=== PATIENT | male | born 1950 | race Caucasian/White ===

== ENCOUNTER 2018-04-11 17:09 | Emergency (ER) | payer MEDICARE ==
--- NOTE | 2018-04-11 17:36 | ED Physician Chart ---
ED Chief Complaint/HPI - Patient Information Date Seen:: 04/11/18 Time Seen:: 17:20 Chief Complaint:: abnormal labs History of Present Illness:: Patient had a urinalysis 2 days ago which had 11-30 rbc's and it. ED Review of Systems - Review of Systems General/Constitutional: No fever, No chills, No weight loss, No weakness, No diaphoresis, No edema, No loss of appetite Skin: No skin lesions, No rash, No bruising Head: No headache, No light-headedness Eyes: No loss of vision, No pain, No diplopia ENT: No earache, No nasal drainage, No sore throat, No tinnitus Neck: No neck pain, No swelling, No thyromegaly, No stiffness, No mass noted Cardio Vascular: No chest pain, No palpitations, No PND, No orthopnea, No edema Pulmonary: No SOB, No cough, No sputum, No wheezing GI: No nausea, No vomiting, No diarrhea, No pain, No melena, No hematochezia, No constipation, No hematemesis G/U: No dysuria, No frequency, No hematuria Musculoskeletal: No bone or joint pain, No back pain, No muscle pain Endocrine: No polyuria, No polydipsia Psychiatric: No prior psych history, No depression, No anxiety, No suicidal ideation Hematopoietic: No bruising, No lymphadenopathy Allergic/Immuno: No urticaria, No angioedema Neurological: No syncope, No focal symptoms, No weakness, No paresthesia, No headache, No seizure, No dizziness, No confusion, No vertigo ED Past Medical History - Past Medical History Past Medical History: Dyslipidemia, PUD/GERD, Seizures, Other (seizures; hyperlipidemia; benign prostatic hypertrophy; major depression) Family History: None Social History: Non Smoker Surgical History: other (coarctation of the aorta at age 11; recent craniotomy for mass) Psychiatricy History: Depression, Other (anxiety) Medication: Reviewed Family Medical History - Family Member Mother History Unknown: Yes Ethnicity: Non- Living Status: ED Physical Exam - Physical Examination General/Constitutional: Awake, Well-developed, well-nourished, Alert, No distress, GCS 15, Non-toxic appearing, Ambulatory Other Gen/Cons comments:: Patient is alert and oriented to the correct year only Head: Atraumatic Eyes: Lids, conjuctiva normal, PERRL, EOMI Skin: Nl inspection, No rash, No skin lesions, No ecchymosis, Well hydrated, No lymphadenopathy Other Skin comments:: Slight depression of scalp just anterior to left yazdanism ENMT: External ears, nose nl, Nasal exam nl, Lips, teeth, gums nl Neck: Nontender, Full ROM w/o pain, No JVD, No nuchal rigidity, No bruit, No mass, No stridor Respiratory: Nl effort/Exclusion, Clear to Auscultation, No Wheeze/Rhonchi/Rales Cardio Vascular: RRR, No murmur, gallop, rubs, NL S1 S2 GI: No tenderness/rebounding/guarding, No organomegaly, No hernia, Normal BS's, Nondistended, No mass/bruits, No McBurney tenderness : No CVA tenderness Extremities: No tenderness or effusion, Full ROM, normal strength in all extremities, No edema, Normal digits & nails Neuro/Psych: Alert/oriented, Mood normal Other Neuro/Psych comments:: Minimal decreased <grasp Misc: Normal back, No paraspinal tenderness ED Labs/Radiology/EKG Results - Lab Results Results: Laboratory Results - last 24 hr 04/11/18 04/11/18 04/11/18 17:30 17:30 18:00 WBC 5.2 RBC 4.76 Hgb 13.8 Hct 41.2 MCV 86.5 MCH 29.1 MCHC Differential 33.6 RDW 12.6 Plt Count 185 MPV 6.9 Neutrophils % 67.6 Lymphocytes % 23.5 Monocytes % 7.4 Eosinophils % 0.8 Basophils % 0.7 Sodium 140 Potassium 3.7 Chloride 107 Carbon Dioxide 27.7 Anion Gap 9.0 BUN 9 Creatinine 0.9 Est GFR ( Amer) > 60.0 Est GFR (Non-Af Amer) > 60.0 BUN/Creatinine Ratio 10.0 Glucose 117 H Calcium 9.1 Magnesium 2.3 Urine Source RANDOM Urine Color YELLOW Urine Clarity SLIGHTLY HAZY Urine pH 7.0 Ur Specific [place] 1.020 Urine Protein TRACE Urine Glucose (UA) NEGATIVE Urine Ketones NEGATIVE Urine Blood NEGATIVE Urine Nitrate NEGATIVE Urine Bilirubin NEGATIVE Urine Urobilinogen 1.0 Ur Leukocyte Esterase NEGATIVE Urine RBC 0-2 H Urine WBC 2-5 Ur Epithelial Cells OCCASIONAL Urine Bacteria FEW ED Septic Shock - . Is Septic Shock (SBP<90, OR Lactate>4 mmol\L) present?: No ED Reassessment (Disposition) - Reassessment Reassessment:: Patient's urinalysis of 2 days ago demonstrating hematuria was either a laboratory error or the hematuria has resolved. I spoke to Dr. Larson and he agrees patient can return to his facility. Reassessment Condition:: Unchanged - Diagnosis Diagnosis:: Hematuria, resolved. - Patient Disposition Discharge/Transfer:: Care Home Care - SNF Condition at Disposition:: Stable, Unchanged
[2018-04-11 17:40] LABS: % BASOPHILS 0.7 % (0.0-2.0); % EOSINOPHILS 0.8 % (0.0-5.0); % LYMPHOCYTES 23.5 % (20.0-50.0); % MONOCYTES 7.4 % (2.0-10.0); % NEUTROPHILS 67.6 % (40.0-80.0); HEMATOCRIT 41.2 % (41.0-60); HEMOGLOBIN 13.8 gm/dL (12-16); LYMPHOCYTE ABSOLUTE 1.2 Th/cmm (1.5-3.0); MEAN CELL VOLUME 86.5 fl (80-99); MEAN CORPUSCULAR HEMOGLOBIN 29.1 pg (27.0-31.0); MEAN CORPUSCULAR HGB CONC 33.6 pg (28.0-36.0); MEAN PLATELET VOLUME 6.9 fl; MONOCYTE ABSOLUTE 0.4 Th/cmm (0.3-1.0); NEUTROPHILE ABSOLUTE 3.6 Th/cmm (1.8-8.0); PLATELET COUNT 185 Th/cmm (150-400); RED BLOOD COUNT 4.76 Mil/cmm (3.80-5.80); RED CELL DISTRIBUTION WIDTH 12.6 % (11.5-20.0); WHITE BLOOD COUNT 5.2 Th/cmm (4.8-10.8)
[2018-04-11 17:54] LABS: BUN - UREA NITROGEN 9 mg/dL (7-25); CALCIUM SERUM 9.1 mg/dL (8.6-10.3); CARBON DIOXIDE 27.7 mEq/L (21.0-31.0); CHLORIDE 107 mEq/L (98-107); CREATININE - SERUM 0.9 mg/dL (0.7-1.3); GFR AFRICAN-AMERICAN > 60.0 ml/min (>90); GFR NON AFRICAN-AMERICAN > 60.0 ml/min; GLUCOSE 117 mg/dL (70-105); MAGNESIUM 2.3 mg/dL (1.9-2.7); POTASSIUM SERUM 3.7 mEq/L (3.5-5.1); SODIUM SERUM 140 mEq/L (136-145)
[2018-04-11 18:33] LABS: URINE MICROSCOPIC INDICATED? YES; URINE SOURCE RANDOM
[2018-04-11 18:34] LABS: URINE BILIRUBIN NEGATIVE (NEGATIVE); URINE BLOOD NEGATIVE (NEGATIVE); URINE GLUCOSE (UA) NEGATIVE (NEGATIVE); URINE KETONE NEGATIVE (NEGATIVE); URINE LEUKOCYTE ESTERASE NEGATIVE (NEGATIVE); URINE NITRATE NEGATIVE (NEGATIVE); URINE PROTEIN TRACE mg/dL (NEGATIVE)
[2018-04-11 18:40] LABS: URINE CLARITY SLIGHTLY HAZY (CLEAR); URINE COLOR YELLOW
[2018-04-11 18:41] LABS: URINE BACTERIA FEW /hpf (NONE SEEN); URINE EPITHELIAL CELLS OCCASIONAL /lpf (FEW); URINE RBC 0-2 /hpf (0-5)
== END 2018-04-11 21:30 ==
LOC: ER 17:09
DX: R31.9 Hematuria, unspecified (principal); E78.5 Hyperlipidemia, unspecified; K21.9 Gastro-esophageal reflux disease without esophagitis; Z88.0 Allergy status to penicillin
CPT/HCPCS: 36415-UA; 80048-TC; 81001-TC; 83735-TC; 85025-TC; Z7502

== ENCOUNTER 2018-05-07 15:14 | Inpatient (IN) | payer MEDICARE, BC ==
[2018-05-07 16:18] LABS: % BASOPHILS 1.4 % (0.0-2.0); % EOSINOPHILS 0.8 % (0.0-5.0); % MONOCYTES 11.3 % (2.0-10.0); % NEUTROPHILS 63.5 % (40.0-80.0); BASOPHILE ABSOLUTE 0.1 Th/cumm (0-0.2); HEMATOCRIT 42.7 % (41.0-60); HEMOGLOBIN 14.3 gm/dL (12-16); MEAN CELL VOLUME 86.6 fl (80-99); MEAN CORPUSCULAR HEMOGLOBIN 28.9 pg (27.0-31.0); MEAN CORPUSCULAR HGB CONC 33.4 pg (28.0-36.0); MEAN PLATELET VOLUME 6.4 fl; MONOCYTE ABSOLUTE 0.5 Th/cmm (0.3-1.0); NEUTROPHILE ABSOLUTE 2.7 Th/cmm (1.8-8.0); PLATELET COUNT 195 Th/cmm (150-400); RED BLOOD COUNT 4.93 Mil/cmm (3.80-5.80); RED CELL DISTRIBUTION WIDTH 12.9 % (11.5-20.0); WHITE BLOOD COUNT 4.3 Th/cmm (4.8-10.8)
[2018-05-07 16:33] LABS: BUN - UREA NITROGEN 12 mg/dL (7-25); CALCIUM SERUM 9.6 mg/dL (8.6-10.3); CARBON DIOXIDE 29.8 mEq/L (21.0-31.0); CHLORIDE 103 mEq/L (98-107); GFR AFRICAN-AMERICAN > 60.0 ml/min (>90); GFR NON AFRICAN-AMERICAN > 60.0 ml/min; GLUCOSE 120 mg/dL (70-105); POTASSIUM SERUM 3.8 mEq/L (3.5-5.1); SODIUM SERUM 141 mEq/L (136-145)
--- NOTE | 2018-05-07 23:32 | ED Physician Chart ---
ED Chief Complaint/HPI - Patient Information Date Seen:: 05/07/18 Chief Complaint:: INCREASED CONFUSION History of Present Illness:: PATIENT SENT FROM CARE FACILITY FOR INCREASING CONFUSION. WHEN ASKED WHERE HE LIVES, PATIENT INDICATED HE LIVES AT HOME WITH HIS WHICH IS NOT ACCURATE. PAPERWORK THAT ACCOMPANIED PATIENT, INDICATES BRAIN TUMOR WHICH IS MENINGIOMA. 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 Allergies:: Allergies Allergy/AdvReac Type Severity Reaction Status Date / Time Penicillins [PCN] Allergy Verified 04/11/18 17:45 Vitals:: Vital Signs - 8 hr 05/07/18 05/07/18 15:44 17:25 Temp 98.1 F HR 61 56 RR 16 16 BP 136/79 142/62 O2 Sat % 95 99 Family Medical History - Family Member Mother History Unknown: Yes Ethnicity: Non- Living Status: ED Labs/Radiology/EKG Results - Lab Results Results: Laboratory Tests 05/07/18 05/07/18 16:10 16:10 WBC 4.3 L RBC 4.93 Hgb 14.3 Hct 42.7 MCV 86.6 MCH 28.9 MCHC Differential 33.4 RDW 12.9 Plt Count 195 MPV 6.4 Neutrophils % 63.5 Lymphocytes % 23.0 Monocytes % 11.3 H Eosinophils % 0.8 Basophils % 1.4 Sodium 141 Potassium 3.8 Chloride 103 Carbon Dioxide 29.8 Anion Gap 12.0 BUN 12 Creatinine 1.0 Est GFR ( Amer) > 60.0 Est GFR (Non-Af Amer) > 60.0 BUN/Creatinine Ratio 12.0 Glucose 120 H Calcium 9.6 ED Septic Shock - <6hrs of presentation: Vital Signs: Vital Signs - 8 hr 05/07/18 05/07/18 15:44 17:25 Temp 98.1 F HR 61 56 RR 16 16 BP 136/79 142/62 O2 Sat % 95 99 ED Discharge Plan - Patient Disposition Admit/Discharge/Transfer: Acute Care w/in this hosp
[2018-05-08 03:06] VITALS: BP 130/74
[2018-05-08 06:06] LABS: % BASOPHILS 0.8 % (0.0-2.0); % EOSINOPHILS 0.7 % (0.0-5.0); % LYMPHOCYTES 19.4 % (20.0-50.0); % MONOCYTES 11.5 % (2.0-10.0); % NEUTROPHILS 67.6 % (40.0-80.0); HEMATOCRIT 38.7 % (41.0-60); HEMOGLOBIN 13.4 gm/dL (12-16); MEAN CELL VOLUME 84.2 fl (80-99); MEAN CORPUSCULAR HEMOGLOBIN 29.3 pg (27.0-31.0); MEAN CORPUSCULAR HGB CONC 34.8 pg (28.0-36.0); MONOCYTE ABSOLUTE 0.6 Th/cmm (0.3-1.0); NEUTROPHILE ABSOLUTE 3.7 Th/cmm (1.8-8.0); PLATELET COUNT 179 Th/cmm (150-400); RED BLOOD COUNT 4.59 Mil/cmm (3.80-5.80); RED CELL DISTRIBUTION WIDTH 12.9 % (11.5-20.0); WHITE BLOOD COUNT 5.3 Th/cmm (4.8-10.8)
[2018-05-08 06:29] LABS: ALBUMIN 4.2 gm/dL (4.2-5.5); ALKALINE PHOSPHATASE 41 U/L (34-104); ANION GAP 12.5 (7.0-16.0); BILIRUBIN,TOTAL 0.8 mg/dL (0.3-1.0); BUN - UREA NITROGEN 10 mg/dL (7-25); CALCIUM SERUM 9.4 mg/dL (8.6-10.3); CHLORIDE 105 mEq/L (98-107); CREATININE - SERUM 0.8 mg/dL (0.7-1.3); GFR AFRICAN-AMERICAN > 60.0 ml/min (>90); GFR NON AFRICAN-AMERICAN > 60.0 ml/min; GLUCOSE 108 mg/dL (70-105); LIPASE 17 U/L (11-82); POTASSIUM SERUM 3.5 mEq/L (3.5-5.1); SGOT 17 U/L (13-39); SGPT/ALT 14 U/L (7-52); SODIUM SERUM 140 mEq/L (136-145); TOTAL PROTEIN,SERUM 6.3 gm/dL (6.0-8.3)
[2018-05-08] MEDS ORDERED: Non-Formulary Item 1 EA (Acetaminophen [Pain Reliever] 650 MG) PO SCH (09:00)
[2018-05-08] MEDS ORDERED: Non-Formulary Item 1 EA (Cranberry Fruit Extract [Cranberry] 425 MG) PO SCH (09:00)
[2018-05-08] MEDS: Ferrous Sulfate 325 MG TAB PO SCH (09:30)
[2018-05-08] MEDS: Multivitamin w/ Minerals Tab PO SCH (09:30)
[2018-05-08] MEDS: POLYETHYLENE GLYCOL 3350 17 GM PACK PO SCH (09:35)
--- NOTE | 2018-05-08 10:23 | Diagnostic Imaging Report ---
Head CT without intravenous contrast Indication: History of brain tumor, confusion Comparison: None Technique: Axial images were obtained from the vertex to the skull base without IV contrast. Coronal reconstructions were made. Total DLP: 776, CTDI40 FINDINGS: Images of the brain obtained without contrast demonstrate postsurgical changes including previous left frontal craniotomies. Mild dural thickening is seen in this region. Atrophy is noted. Moderate white matter disease is seen with area of encephalomalacia involving the left frontal lobe. No evidence of acute hemorrhage. The ventricles and basal cisterns are patent. No mass effect or midline shift. Visualized paranasal sinuses are clear. IMPRESSION: Postsurgical changes including evidence of prior left frontal craniotomy. Area of encephalomalacia of the left frontal lobe is noted. This may related to patient's history of tumor resection. Please correlate with clinical history and old exams. If indicated follow up MRI may be obtained. Atrophy. Moderate supratentorial white matter disease which is nonspecific and may be due to chronic microvessel ischemia. No evidence of acute intracranial hemorrhage.
--- NOTE | 2018-05-08 10:38 | Consultation ---
DATE OF CONSULTATION: 05/08/2018 PSYCHIATRIC CONSULT PATIENT'S AGE: 68-year-old. SEX: Male. PHYSICIAN: Dr. Larson. VICE PRESIDENT INDUSTRIAL RELATIONS: Dr. Delarosa REASON FOR THE CONSULT: Confusion and agitation. HISTORY OF PRESENT ILLNESS: The patient is a 68-year-old male who was admitted to the hospital because of increased confusion and agitation. The patient has been increasingly irritable. According to staff, the patient did not sleep most of last night and he was sexually inappropriate and he was aggressive and fighting with the nurses and staff, especially during helping him with his ADLs. The patient also has been restless. The patient currently is sedated and he did not answer most of my questions but according to staff when awake, is agitated and aggressive. The patient currently has a brain tumor according to the reports and he has meningioma. The patient also had history of encephalopathy from drinking alcohol and diagnosed with Wernicke encephalitis according to the chart. PAST PSYCHIATRIC HISTORY: Wernicke encephalitis. SOCIAL HISTORY: The patient currently lives in a senior care. He does not have any alcohol or any drug use. ALLERGIES: No known allergies. MENTAL STATUS EXAM: The patient appears older than stated age. Currently sedated. Not able to answer any of my questions because of sedation. Thought processes was unable to answer because of his sedation. Unable to assess the rest of the mental status exam because the patient currently seems to be sedated. ASSESSMENT: Psychosis, not otherwise specified, Wernicke encephalopathy by history. TREATMENT PLAN: We will start the patient on Seroquel 25 mg twice a day and we will adjust the dose. We will reevaluate when the patient is more alert. Thanks to Dr. Larson and will follow up with you. [facility]# [id number]
[2018-05-08] MEDS ORDERED: VTE Chemical Prophylaxis Screen/Admission MC PRN (13:28)
--- NOTE | 2018-05-08 17:58 | History & Physical ---
ADMIT DATE: 05/07/2018 HISTORY OF PRESENT ILLNESS: This is a patient and this patient has increasing confusion and got a call from skilled care. The patient was sent for evaluation. The patient apparently lives at home with his . The patient apparently was more confused. The patient has history of alcohol-induced Wernicke's encephalopathy. The patient was evaluated. His blood tests were done. Hemoglobin was 14, hematocrit was 42. Electrolytes are normal and the diagnosis of . PHYSICAL EXAMINATION: HEAD: Normal. ENT: Normal. NECK: Supple, nontender. LUNGS: Clear. CARDIOVASCULAR SYSTEM: S1, S2 heard. ABDOMEN: Soft. Bowel sounds are heard. CENTRAL NERVOUS SYSTEM: Decreased sensorium. DIAGNOSES: Acute psychosis, dementia, history of Wernicke's encephalopathy was made. PLAN: The patient is being admitted to [facility]. Dr. Schmidt was following the patient and I will follow along with him. JOB# [id number]
[2018-05-08] MEDS: Lactulose 10 Gm/15 mL 30mL UDC PO SCH (21:39)
[2018-05-09 06:22] LABS: % BASOPHILS 0.9 % (0.0-2.0); % EOSINOPHILS 0.5 % (0.0-5.0); % LYMPHOCYTES 12.7 % (20.0-50.0); % MONOCYTES 9.3 % (2.0-10.0); % NEUTROPHILS 76.6 % (40.0-80.0); BASOPHILE ABSOLUTE 0.1 Th/cumm (0-0.2); HEMATOCRIT 43.4 % (41.0-60); HEMOGLOBIN 14.5 gm/dL (12-16); LYMPHOCYTE ABSOLUTE 0.8 Th/cmm (1.5-3.0); MEAN CELL VOLUME 85.5 fl (80-99); MEAN CORPUSCULAR HEMOGLOBIN 28.6 pg (27.0-31.0); MEAN CORPUSCULAR HGB CONC 33.4 pg (28.0-36.0); MEAN PLATELET VOLUME 6.9 fl; MONOCYTE ABSOLUTE 0.6 Th/cmm (0.3-1.0); NEUTROPHILE ABSOLUTE 4.9 Th/cmm (1.8-8.0); PLATELET COUNT 199 Th/cmm (150-400); RED BLOOD COUNT 5.08 Mil/cmm (3.80-5.80); RED CELL DISTRIBUTION WIDTH 13.2 % (11.5-20.0); WHITE BLOOD COUNT 6.4 Th/cmm (4.8-10.8)
[2018-05-09 06:37] LABS: ALBUMIN 4.7 gm/dL (4.2-5.5); ALKALINE PHOSPHATASE 48 U/L (34-104); ANION GAP 13.2 (7.0-16.0); BILIRUBIN,TOTAL 0.9 mg/dL (0.3-1.0); BUN - UREA NITROGEN 12 mg/dL (7-25); CALCIUM SERUM 9.8 mg/dL (8.6-10.3); CARBON DIOXIDE 28.3 mEq/L (21.0-31.0); CHLORIDE 103 mEq/L (98-107); CREATININE - SERUM 0.9 mg/dL (0.7-1.3); GFR AFRICAN-AMERICAN > 60.0 ml/min (>90); GFR NON AFRICAN-AMERICAN > 60.0 ml/min; GLUCOSE 105 mg/dL (70-105); POTASSIUM SERUM 3.5 mEq/L (3.5-5.1); SGOT 20 U/L (13-39); SGPT/ALT 17 U/L (7-52); SODIUM SERUM 141 mEq/L (136-145)
[2018-05-09] MEDS: Lactulose 10 Gm/15 mL 30mL UDC PO SCH ×3 (08:17→20:58)
[2018-05-09] MEDS: Ferrous Sulfate 325 MG TAB PO SCH (08:18)
[2018-05-09] MEDS: Multivitamin w/ Minerals Tab PO SCH (08:18)
[2018-05-09] MEDS: POLYETHYLENE GLYCOL 3350 17 GM PACK PO SCH (08:19)
--- NOTE | 2018-05-09 10:33 | Progress Notes ---
DATE: SUBJECTIVE: Chart reviewed and the patient interviewed. Also discussed the patient's condition with the staff and reviewed records and labs. The patient is still having episodes of irritability and agitation. He needs lots of redirections. The patient also still has difficulty following staff directions. According to staff, the patient did not sleep most of last night. The patient also is restless and he is still in a depressed mood and he still has difficulty with controlling his temper. ASSESSMENT: The patient is still agitated and is still psychotic. TREATMENT PLAN: We will continue to monitor his behavior and his condition closely. Also, we will add Seroquel in a dose of 50 mg at bedtime. Hopefully, this will help with his sleep and will decrease his agitation. Also, we will work on behavioral modification and followup. JOB# [id number]
--- NOTE | 2018-05-09 17:00 | General Progress Note ---
Subjective - Review of Systems Subjective: pt. has increasing confusion Objective - Results Result Diagrams: 05/09/18 05:50 05/09/18 05:50 Recent Labs: Laboratory Last Values WBC 6.4 Th/cmm (4.8-10.8) 05/09/18 05:50 RBC 5.08 Mil/cmm (3.80-5.80) 05/09/18 05:50 Hgb 14.5 gm/dL (12-16) 05/09/18 05:50 Hct 43.4 % (41.0-60) 05/09/18 05:50 MCV 85.5 fl (80-99) 05/09/18 05:50 MCH 28.6 pg (27.0-31.0) 05/09/18 05:50 MCHC Differential 33.4 pg (28.0-36.0) 05/09/18 05:50 RDW 13.2 % (11.5-20.0) 05/09/18 05:50 Plt Count 199 Th/cmm (150-400) 05/09/18 05:50 MPV 6.9 fl 05/09/18 05:50 Neutrophils % 76.6 % (40.0-80.0) 05/09/18 05:50 Lymphocytes % 12.7 % (20.0-50.0) L 05/09/18 05:50 Monocytes % 9.3 % (2.0-10.0) 05/09/18 05:50 Eosinophils % 0.5 % (0.0-5.0) 05/09/18 05:50 Basophils % 0.9 % (0.0-2.0) 05/09/18 05:50 Sodium 141 mEq/L (136-145) 05/09/18 05:50 Potassium 3.5 mEq/L (3.5-5.1) 05/09/18 05:50 Chloride 103 mEq/L (98-107) 05/09/18 05:50 Carbon Dioxide 28.3 mEq/L (21.0-31.0) 05/09/18 05:50 Anion Gap 13.2 (7.0-16.0) 05/09/18 05:50 BUN 12 mg/dL (7-25) 05/09/18 05:50 Creatinine 0.9 mg/dL (0.7-1.3) 05/09/18 05:50 Est GFR ( Amer) > 60.0 ml/min (>90) 05/09/18 05:50 Est GFR (Non-Af Amer) > 60.0 ml/min 05/09/18 05:50 BUN/Creatinine Ratio 13.3 05/09/18 05:50 Glucose 105 mg/dL (70-105) 05/09/18 05:50 Calcium 9.8 mg/dL (8.6-10.3) 05/09/18 05:50 Total Bilirubin 0.9 mg/dL (0.3-1.0) 05/09/18 05:50 AST 20 U/L (13-39) 05/09/18 05:50 ALT 17 U/L (7-52) 05/09/18 05:50 Alkaline Phosphatase 48 U/L (34-104) 05/09/18 05:50 Ammonia 67 umol/L (16-53) H 05/08/18 05:20 Total Protein 7.0 gm/dL (6.0-8.3) 05/09/18 05:50 Albumin 4.7 gm/dL (4.2-5.5) 05/09/18 05:50 Globulin 2.3 gm/dL 05/09/18 05:50 Albumin/Globulin Ratio 2.0 (1.0-1.8) H 05/09/18 05:50 Lipase 17 U/L (11-82) 05/08/18 05:20 TSH 1.94 uIU/ml (0.34-5.60) 05/08/18 05:20 - Physical Exam Vitals and I&O: Vital Signs Temp 97.7 F 05/09/18 12:00 Pulse 55 05/09/18 12:00 Resp 18 05/09/18 12:00 BP 142/75 05/09/18 12:00 Pulse Ox 96 05/09/18 12:00 Intake & Output 05/08/18 05/09/18 05/09/18 18:59 06:59 18:59 Intake Total 800 100 Balance 800 100 Weight (lbs) 82.554 kg 82.554 kg Intake: Oral 800 100 Other: # Voids 3 3 # Bowel Movements 1 0 Stool Characteristics Soft Weight Source Bedscale Bedscale Active Medications: Current Medications Acetaminophen (Tylenol) 650 mg PO DAILY [facility] Stop: 07/07/18 08:59 Last Admin: 05/09/18 08:17 Dose: 650 mg Allopurinol (Zyloprim) 100 mg PO DAILY [facility] Stop: 07/07/18 08:59 Last Admin: 05/09/18 08:17 Dose: 100 mg Ascorbic Acid (Vitamin C) 500 mg PO DAILY [facility] Stop: 07/07/18 08:59 Last Admin: 05/09/18 08:17 Dose: 500 mg Ferrous Sulfate (Iron) 325 mg PO DAILY [facility] Stop: 07/07/18 08:59 Last Admin: 05/09/18 08:18 Dose: 325 mg Finasteride (Proscar) 5 mg PO DAILY [facility]; Protocol Stop: 07/07/18 08:59 Last Admin: 05/09/18 08:18 Dose: 5 mg Folic Acid (Folate) 1 mg PO DAILY [facility] Stop: 07/07/18 08:59 Last Admin: 05/09/18 08:18 Dose: 1 mg Lactulose (Cephulac) 20 gm PO TID [facility] Stop: 07/07/18 20:59 Last Admin: 05/09/18 13:18 Dose: 20 gm Lorazepam (Ativan) 1 mg IVP Q4H PRN; Protocol PRN Reason: Agitation Stop: 07/06/18 20:38 Last Admin: 05/08/18 21:39 Dose: 1 mg Miscellaneous (Vte Chemical Prophylaxis Screen/ Admission) 1 ea [facility] PRN PRN PRN Reason: PROTOCOL Stop: 07/07/18 13:27 Polyethylene Glycol (Miralax) 17 gm PO DAILY [facility] Stop: 07/07/18 08:59 Last Admin: 05/09/18 08:19 Dose: 17 gm Quetiapine Fumarate (Seroquel) 25 mg PO BID [facility]; Protocol Stop: 07/07/18 08:59 Last Admin: 05/09/18 08:18 Dose: 25 mg Quetiapine Fumarate (Seroquel) 50 mg PO HS [facility]; Protocol Stop: 07/08/18 20:59 Simvastatin (Zocor) 20 mg PO HS [facility]; Protocol Stop: 07/06/18 20:59 Last Admin: 05/08/18 21:39 Dose: 20 mg Tamsulosin HCl (Flomax) 0.4 mg PO DAILY [facility] Stop: 07/07/18 08:59 Last Admin: 05/09/18 08:18 Dose: 0.4 mg Thiamine HCl (Vitamin B1) 200 mg PO DAILY [facility] Stop: 07/07/18 08:59 Last Admin: 05/09/18 08:19 Dose: 200 mg Valproate Sodium (Depakene) 250 mg PO BID [facility] Stop: 07/08/18 08:59 Last Admin: 05/09/18 08:17 Dose: 250 mg Zinc Sulfate (Zinc Sulfate) 220 mg PO DAILY [facility] Stop: 07/07/18 08:59 Last Admin: 05/09/18 08:18 Dose: 220 mg General: Alert, No acute distress HEENT: PERRLA, EOMI Neck: Supple Cardiovascular: Normal S1, Normal S2 Lungs: Clear to auscultation Abdomen: Bowel sounds Neurological: Other (decreased sensorium) Assessment/Plan - Assessment Assessment: acute psychosis dementia h/o wernicke's encephalopathy - Plan Plan: continue current orders continue present management
[2018-05-10 03:53] LABS: % BASOPHILS 0.8 % (0.0-2.0); % EOSINOPHILS 1.6 % (0.0-5.0); % LYMPHOCYTES 25.8 % (20.0-50.0); % MONOCYTES 12.3 % (2.0-10.0); % NEUTROPHILS 59.5 % (40.0-80.0); EOSINOPHILE ABSOLUTE 0.1 Th/cmm (0.1-0.4); HEMATOCRIT 38.5 % (41.0-60); LYMPHOCYTE ABSOLUTE 1.2 Th/cmm (1.5-3.0); MEAN CELL VOLUME 85.9 fl (80-99); MEAN CORPUSCULAR HEMOGLOBIN 29.1 pg (27.0-31.0); MEAN CORPUSCULAR HGB CONC 33.9 pg (28.0-36.0); MEAN PLATELET VOLUME 6.6 fl; MONOCYTE ABSOLUTE 0.6 Th/cmm (0.3-1.0); NEUTROPHILE ABSOLUTE 2.8 Th/cmm (1.8-8.0); PLATELET COUNT 169 Th/cmm (150-400); RED BLOOD COUNT 4.48 Mil/cmm (3.80-5.80); RED CELL DISTRIBUTION WIDTH 13.1 % (11.5-20.0); WHITE BLOOD COUNT 4.7 Th/cmm (4.8-10.8)
[2018-05-10 04:23] LABS: ALB/GLOB RATIO 1.8 (1.0-1.8); ALBUMIN 3.7 gm/dL (4.2-5.5); ALKALINE PHOSPHATASE 42 U/L (34-104); ANION GAP 7.3 (7.0-16.0); BILIRUBIN,TOTAL 0.7 mg/dL (0.3-1.0); BUN - UREA NITROGEN 8 mg/dL (7-25); CALCIUM SERUM 8.9 mg/dL (8.6-10.3); CHLORIDE 107 mEq/L (98-107); CREATININE - SERUM 0.8 mg/dL (0.7-1.3); GFR AFRICAN-AMERICAN > 60.0 ml/min (>90); GFR NON AFRICAN-AMERICAN > 60.0 ml/min; GLUCOSE 100 mg/dL (70-105); MAGNESIUM 2.2 mg/dL (1.9-2.7); PHOSPHOROUS 3.9 mg/dL (2.5-5.0); POTASSIUM SERUM 3.3 mEq/L (3.5-5.1); SGOT 18 U/L (13-39); SGPT/ALT 16 U/L (7-52); SODIUM SERUM 141 mEq/L (136-145); TOTAL PROTEIN,SERUM 5.8 gm/dL (6.0-8.3)
[2018-05-10] MEDS: Multivitamin w/ Minerals Tab PO SCH (08:15)
[2018-05-10] MEDS: Ferrous Sulfate 325 MG TAB PO SCH (08:15)
[2018-05-10] MEDS: POLYETHYLENE GLYCOL 3350 17 GM PACK PO SCH (08:18)
[2018-05-10] MEDS: Lactulose 10 Gm/15 mL 30mL UDC PO SCH ×3 (08:18→20:04)
--- NOTE | 2018-05-10 09:08 | Progress Notes ---
DATE: SUBJECTIVE: Chart reviewed and the patient interviewed. Also discussed the patient's condition with the staff and reviewed records and labs. The patient was transferred to ICU bed 6. The patient is calm and cooperative. Last night, staff had to hold the Seroquel and was not given to him at bedtime because the patient was sedated. The patient currently is alert and oriented and interact appropriately. He denies any intention to harm self or others. ASSESSMENT: The patient is calm and cooperative. TREATMENT PLAN: Continue same dose and continue to monitor his behavior and follow up closely. JOB# [id number]
[2018-05-10] MEDS ORDERED: Potassium Chloride 20 mEq ER Tab PO ONE (14:10)
--- NOTE | 2018-05-10 18:04 | Consultation ---
DATE OF CONSULTATION: 05/10/[address] Larson. HISTORY OF PRESENT ILLNESS: This is a 68-year-old male patient who had been confused at a shelter facility and the patient was brought to the Emergency Room. The patient was found to have bradycardia with elevated ammonia level and hence, the patient is admitted. Cardiac consult is requested. PAST MEDICAL HISTORY: Sinus bradycardia, hepatic encephalopathy, BPH, major depression, anxiety, gout, hyperlipidemia, GERD, iron deficiency anemia, and hypokalemia. FAMILY HISTORY: Unremarkable. SOCIAL HISTORY: The patient has a history of alcohol abuse. ALLERGIES: None. PHYSICAL EXAMINATION: VITAL SIGNS: Blood pressure 139/80, pulse 48, and respirations 28. HEAD: Normocephalic. No lumps or bumps. EYES: Pupils equal, reactive to light. Fundi show AV nicking, sclerae white, conjunctivae pink. NECK: Carotid 2+. Normal upstroke. JVD flat. Thyroid not palpable. Lymph nodes not palpable. CHEST: Shows increased AP diameter. No kyphosis, scoliosis. LUNGS: Bilateral bronchovesicular breath sounds. HEART: PMI fifth intercostal space with lateral to midclavicular line. S1, S2. No S3, soft S4, soft systolic murmur. ABDOMEN: Soft. Liver, spleen not palpable. No organomegaly. Bowel sounds active. NEUROLOGIC: No focal neurological deficit. EXTREMITIES: Peripheral pulses 2+. No pedal edema. CLINICAL IMPRESSION: Sinus bradycardia, hepatic encephalopathy, benign prostatic hypertrophy, major depression, anxiety, gout, hyperlipidemia, gastroesophageal reflux disease, iron deficiency anemia, and hypokalemia. PLAN: Admit the patient. We will continue present care and monitor the patient closely. Also get TSH level and echocardiogram. JOB# [id number]
[2018-05-11 04:45] LABS: ANION GAP 10.7 (7.0-16.0); BUN - UREA NITROGEN 9 mg/dL (7-25); CALCIUM SERUM 9.3 mg/dL (8.6-10.3); CARBON DIOXIDE 28.8 mEq/L (21.0-31.0); CHLORIDE 106 mEq/L (98-107); CREATININE - SERUM 0.9 mg/dL (0.7-1.3); GFR AFRICAN-AMERICAN > 60.0 ml/min (>90); GFR NON AFRICAN-AMERICAN > 60.0 ml/min; GLUCOSE 95 mg/dL (70-105); POTASSIUM SERUM 3.5 mEq/L (3.5-5.1); SODIUM SERUM 142 mEq/L (136-145)
[2018-05-11] MEDS: Lactulose 10 Gm/15 mL 30mL UDC PO SCH ×3 (08:34→20:38)
[2018-05-11] MEDS: Multivitamin w/ Minerals Tab PO SCH (08:34)
[2018-05-11] MEDS: Ferrous Sulfate 325 MG TAB PO SCH (08:35)
[2018-05-11] MEDS: POLYETHYLENE GLYCOL 3350 17 GM PACK PO SCH (08:36)
[2018-05-11 17:34] LABS: URINE MICROSCOPIC INDICATED? YES; URINE SOURCE CLEAN C
[2018-05-11 17:40] LABS: URINE BILIRUBIN NEGATIVE (NEGATIVE); URINE BLOOD NEGATIVE (NEGATIVE); URINE GLUCOSE (UA) NEGATIVE (NEGATIVE); URINE KETONE TRACE mg/dL (NEGATIVE); URINE LEUKOCYTE ESTERASE SMALL (NEGATIVE); URINE NITRATE POSITIVE (NEGATIVE); URINE PH 6.5 (4.6 - 8.0); URINE PROTEIN TRACE mg/dL (NEGATIVE)
[2018-05-11 18:37] LABS: URINE CLARITY HAZY (CLEAR); URINE COLOR YELLOW
[2018-05-11 18:38] LABS: URINE RBC 0-2 /hpf (0-5)
[2018-05-11 18:39] LABS: URINE BACTERIA MODERATE /hpf (NONE SEEN); URINE EPITHELIAL CELLS FEW /lpf (FEW)
[2018-05-12] MEDS: Ferrous Sulfate 325 MG TAB PO SCH (08:28)
[2018-05-12] MEDS: Multivitamin w/ Minerals Tab PO SCH (08:28)
[2018-05-12] MEDS: Lactulose 10 Gm/15 mL 30mL UDC PO SCH ×3 (08:28→20:35)
[2018-05-12] MEDS: POLYETHYLENE GLYCOL 3350 17 GM PACK PO SCH (08:30)
--- NOTE | 2018-05-12 09:44 | Progress Notes ---
DATE: 05/11/2018 SUBJECTIVE: The patient was seen in the ICU with a 1:1 sitter due to a behavioral issue. Currently, heart rate still in the low 40s. The patient appears to be awake, alert, oriented x 1 to name with episodes of agitation, otherwise the patient is in no acute distress. OBJECTIVE: VITAL SIGNS: Temperature 98.3, heart rate of 45, 95% on room air, respirations 17, blood pressure 117/60. HEENT: Head is atraumatic and normocephalic. Eyes: Bilateral conjunctivae are clear. Bilateral pupils are equally round and reactive. NECK: Supple. No JVD. CARDIOVASCULAR: S1 and S2, without murmur. PULMONARY: Clear to auscultation. GASTROINTESTINAL: Soft and nontender without guarding. Positive bowel sounds. MUSCULOSKELETAL: No clubbing. No cyanosis noted. ASSESSMENT: 1. Hepatic encephalopathy. 2. Sinus bradycardia. 3. Benign prostatic hypertrophy. 4. Depression. 5. Anxiety. 6. Hyperlipidemia. 7. Iron deficiency anemia. 8. Gastroesophageal reflux disease. PLAN: We will keep the patient inpatient in ICU. We will follow up with a psychiatrist and obstetrical anesthesiologist and monitor the patient's condition and behavior. Treatment plans were discussed with the patient's nurse. Treatment plans were discussed with Dr. Larson. JOB# [id number]
--- NOTE | 2018-05-12 11:51 | General Progress Note ---
Subjective - Review of Systems Events since last encounter: patient in no acute distres Subjective: pt. has increasing confusion Objective - Results Result Diagrams: 05/10/18 03:35 05/11/18 04:05 Recent Labs: Laboratory Last Values WBC 4.7 Th/cmm (4.8-10.8) L 05/10/18 03:35 RBC 4.48 Mil/cmm (3.80-5.80) 05/10/18 03:35 Hgb 13.0 gm/dL (12-16) 05/10/18 03:35 Hct 38.5 % (41.0-60) L 05/10/18 03:35 MCV 85.9 fl (80-99) 05/10/18 03:35 MCH 29.1 pg (27.0-31.0) 05/10/18 03:35 MCHC Differential 33.9 pg (28.0-36.0) 05/10/18 03:35 RDW 13.1 % (11.5-20.0) 05/10/18 03:35 Plt Count 169 Th/cmm (150-400) 05/10/18 03:35 MPV 6.6 fl 05/10/18 03:35 Neutrophils % 59.5 % (40.0-80.0) 05/10/18 03:35 Lymphocytes % 25.8 % (20.0-50.0) 05/10/18 03:35 Monocytes % 12.3 % (2.0-10.0) H 05/10/18 03:35 Eosinophils % 1.6 % (0.0-5.0) 05/10/18 03:35 Basophils % 0.8 % (0.0-2.0) 05/10/18 03:35 Sodium 142 mEq/L (136-145) 05/11/18 04:05 Potassium 3.5 mEq/L (3.5-5.1) 05/11/18 04:05 Chloride 106 mEq/L (98-107) 05/11/18 04:05 Carbon Dioxide 28.8 mEq/L (21.0-31.0) 05/11/18 04:05 Anion Gap 10.7 (7.0-16.0) 05/11/18 04:05 BUN 9 mg/dL (7-25) 05/11/18 04:05 Creatinine 0.9 mg/dL (0.7-1.3) 05/11/18 04:05 Est GFR ( Amer) > 60.0 ml/min (>90) 05/11/18 04:05 Est GFR (Non-Af Amer) > 60.0 ml/min 05/11/18 04:05 BUN/Creatinine Ratio 10.0 05/11/18 04:05 Glucose 95 mg/dL (70-105) 05/11/18 04:05 Calcium 9.3 mg/dL (8.6-10.3) 05/11/18 04:05 Phosphorus 3.9 mg/dL (2.5-5.0) 05/10/18 03:35 Magnesium 2.2 mg/dL (1.9-2.7) 05/10/18 03:35 Total Bilirubin 0.7 mg/dL (0.3-1.0) 05/10/18 03:35 AST 18 U/L (13-39) 05/10/18 03:35 ALT 16 U/L (7-52) 05/10/18 03:35 Alkaline Phosphatase 42 U/L (34-104) 05/10/18 03:35 Ammonia 67 umol/L (16-53) H 05/08/18 05:20 Total Protein 5.8 gm/dL (6.0-8.3) L 05/10/18 03:35 Albumin 3.7 gm/dL (4.2-5.5) L 05/10/18 03:35 Globulin 2.1 gm/dL 05/10/18 03:35 Albumin/Globulin Ratio 1.8 (1.0-1.8) 05/10/18 03:35 Lipase 17 U/L (11-82) 05/08/18 05:20 TSH 1.94 uIU/ml (0.34-5.60) 05/08/18 05:20 Urine Source CLEAN C 05/11/18 16:50 Urine Color YELLOW 05/11/18 16:50 Urine Clarity HAZY (CLEAR) 05/11/18 16:50 Urine pH 6.5 (4.6 - 8.0) 05/11/18 16:50 Ur Specific [place] 1.020 (1.005-1.030) 05/11/18 16:50 Urine Protein TRACE mg/dL (NEGATIVE) 05/11/18 16:50 Urine Glucose (UA) NEGATIVE mg/dL (NEGATIVE) 05/11/18 16:50 Urine Ketones TRACE mg/dL (NEGATIVE) 05/11/18 16:50 Urine Blood NEGATIVE (NEGATIVE) 05/11/18 16:50 Urine Nitrate POSITIVE (NEGATIVE) H 05/11/18 16:50 Urine Bilirubin NEGATIVE (NEGATIVE) 05/11/18 16:50 Urine Urobilinogen 2.0 E.U./dL (0.2 - 1.0) 05/11/18 16:50 Ur Leukocyte Esterase SMALL (NEGATIVE) H 05/11/18 16:50 Urine RBC 0-2 /hpf (0-5) H 05/11/18 16:50 Urine WBC 6-10 /hpf (0-5) 05/11/18 16:50 Ur Epithelial Cells FEW /lpf (FEW) 05/11/18 16:50 Urine Bacteria MODERATE /hpf (NONE SEEN) H 05/11/18 16:50 - Physical Exam Vitals and I&O: Vital Signs Temp 97.4 F 05/12/18 04:00 Pulse 56 05/12/18 04:00 Resp 17 05/12/18 04:00 BP 112/64 05/12/18 04:00 Pulse Ox 96 05/12/18 04:00 Intake & Output 05/11/18 05/12/18 05/12/18 18:59 06:59 18:59 Intake Total 900 100 Balance 900 100 Weight (lbs) 81.647 kg 81.647 kg Intake: Oral 900 100 Other: # Voids 4 3 # Bowel Movements 1 0 Weight Source Bedscale Bedscale Active Medications: Current Medications Acetaminophen (Tylenol) 650 mg PO Q6HR PRN PRN Reason: pain/fever>101 Stop: 07/11/18 11:59 Allopurinol (Zyloprim) 100 mg PO DAILY [facility] Stop: 07/07/18 08:59 Last Admin: 05/12/18 08:28 Dose: 100 mg Ascorbic Acid (Vitamin C) 500 mg PO DAILY [facility] Stop: 07/07/18 08:59 Last Admin: 05/12/18 08:28 Dose: 500 mg Ferrous Sulfate (Iron) 325 mg PO DAILY [facility] Stop: 07/07/18 08:59 Last Admin: 07/08/18 08:28 Dose: 325 mg Finasteride (Proscar) 5 mg PO DAILY [facility]; Protocol Stop: 07/07/18 08:59 Last Admin: 05/12/18 08:28 Dose: 5 mg Folic Acid (Folate) 1 mg PO DAILY [facility] Stop: 07/07/18 08:59 Last Admin: 05/12/18 08:30 Dose: 1 mg Lactulose (Cephulac) 20 gm PO TID [facility] Stop: 07/07/18 20:59 Last Admin: 05/12/18 08:28 Dose: 20 gm Lorazepam (Ativan) 1 mg IVP Q4H PRN; Protocol PRN Reason: Agitation Stop: 07/06/18 20:38 Last Admin: 05/11/18 22:54 Dose: 1 mg Miscellaneous (Vte Chemical Prophylaxis Screen/ Admission) 1 ea [facility] PRN PRN PRN Reason: PROTOCOL Stop: 07/07/18 13:27 Polyethylene Glycol (Miralax) 17 gm PO DAILY [facility] Stop: 07/07/18 08:59 Last Admin: 05/12/18 08:30 Dose: 17 gm Quetiapine Fumarate (Seroquel) 25 mg PO BID [facility]; Protocol Stop: 07/07/18 08:59 Last Admin: 05/12/18 08:28 Dose: 25 mg Quetiapine Fumarate (Seroquel) 50 mg PO HS [facility]; Protocol Stop: 07/08/18 20:59 Last Admin: 05/11/18 20:39 Dose: 50 mg Simvastatin (Zocor) 20 mg PO HS [facility]; Protocol Stop: 07/06/18 20:59 Last Admin: 05/11/18 20:39 Dose: 20 mg Tamsulosin HCl (Flomax) 0.4 mg PO DAILY [facility] Stop: 07/07/18 08:59 Last Admin: 05/12/18 08:28 Dose: 0.4 mg Thiamine HCl (Vitamin B1) 200 mg PO DAILY [facility] Stop: 07/07/18 08:59 Last Admin: 05/12/18 08:28 Dose: 200 mg Valproate Sodium (Depakene) 250 mg PO BID [facility] Stop: 07/08/18 08:59 Last Admin: 05/12/18 08:28 Dose: 250 mg Zinc Sulfate (Zinc Sulfate) 220 mg PO DAILY [facility] Stop: 07/07/18 08:59 Last Admin: 05/12/18 08:28 Dose: 220 mg General: Alert, No acute distress HEENT: PERRLA, EOMI Neck: Supple Cardiovascular: Normal S1, Normal S2 Lungs: Clear to auscultation Abdomen: Bowel sounds Neurological: Other (decreased sensorium) Assessment/Plan - Assessment Assessment: acute psychosis dementia h/o wernicke's encephalopathy - Plan Plan: continue current orders Nutritional Asmnt/Malnutr-PDOC - Dietary Evaluation Malnutrition Findings (Please click <Entered> for more info): Nutritional Asmnt/Malnutrition Start: 05/11/18 11: 24 Text: Status: Complete Freq: Protocol: Document 05/11/18 11:24 YAN (Rec: 05/11/18 11:32 YAN JACK- [email or web address]) Nutritional Asmnt/Malnutrition Patient General Information Diagnosis encephalopathy Pertinent Medical Hx/Surgical Hx GOUT, Fe deficiency, wernicke' s encephalopathy, BPH, anxiety , major depression, GERD, hyperlipidemia, sinus bradycardia Subjective Information pt asleep with sitter at bedside Current Diet Order/ Nutrition Support low sodium 2g Na Pertinent Medications vit C, Fe folate, lactulose, miralax, vit B1, zinc sulfate Pertinent Labs 05/10: NA 142, K 3.5, CL 106, CO2 28.8, BUN 9, Cr 0.9, Ca 9. 3, glucose 95 Nutritional Hx/Data Height 1.83 m Height (Calculated Centimeters) 182.9 Current Weight (lbs) 82.554 kg Weight (Calculated Kilograms) 82.6 Weight (Calculated Grams) 61881.8 Body Mass Index (BMI) 24.7 Weight Status Approriate GI Symptoms GI Symptoms None Last BM 05/08 Cultural/Ethnic/[employer] Belief unknown Usual diet at home regular Skin Integrity/Comment: maria isabel score19, intact Estimated Nutritional Goals BEE in Kcals: Using Current wt Calories/Kcals/Kg 25-30kcals/kg Kcals Calculated 2075-2490kcals/day Protein: Using Current wt Protein g/k-1.2g/kg Protein Calculated 83-100g/day Fluid: ml per MD Nutritional Problem 1. Problem Problem No nutrition diagnosis at this time Intervention/Recommendation Comments Recommend continuing 2g Na diet Expected Outcomes/Goals Expected Outcomes/Goals PO intake >75% of meals
[2018-05-13] MEDS: Ferrous Sulfate 325 MG TAB PO SCH (09:48)
[2018-05-13] MEDS: Multivitamin w/ Minerals Tab PO SCH (09:48)
[2018-05-13] MEDS: Lactulose 10 Gm/15 mL 30mL UDC PO SCH ×3 (09:49→22:07)
[2018-05-13] MEDS: POLYETHYLENE GLYCOL 3350 17 GM PACK PO SCH (09:49)
--- NOTE | 2018-05-13 14:52 | General Progress Note ---
Subjective - Review of Systems Events since last encounter: in no distress no fever denies pain Subjective: pt. has increasing confusion Objective - Results Result Diagrams: 05/10/18 03:35 05/11/18 04:05 Recent Labs: Laboratory Last Values WBC 4.7 Th/cmm (4.8-10.8) L 05/10/18 03:35 RBC 4.48 Mil/cmm (3.80-5.80) 05/10/18 03:35 Hgb 13.0 gm/dL (12-16) 05/10/18 03:35 Hct 38.5 % (41.0-60) L 05/10/18 03:35 MCV 85.9 fl (80-99) 05/10/18 03:35 MCH 29.1 pg (27.0-31.0) 05/10/18 03:35 MCHC Differential 33.9 pg (28.0-36.0) 05/10/18 03:35 RDW 13.1 % (11.5-20.0) 05/10/18 03:35 Plt Count 169 Th/cmm (150-400) 05/10/18 03:35 MPV 6.6 fl 05/10/18 03:35 Neutrophils % 59.5 % (40.0-80.0) 05/10/18 03:35 Lymphocytes % 25.8 % (20.0-50.0) 05/10/18 03:35 Monocytes % 12.3 % (2.0-10.0) H 05/10/18 03:35 Eosinophils % 1.6 % (0.0-5.0) 05/10/18 03:35 Basophils % 0.8 % (0.0-2.0) 05/10/18 03:35 Sodium 142 mEq/L (136-145) 05/11/18 04:05 Potassium 3.5 mEq/L (3.5-5.1) 05/11/18 04:05 Chloride 106 mEq/L (98-107) 05/11/18 04:05 Carbon Dioxide 28.8 mEq/L (21.0-31.0) 05/11/18 04:05 Anion Gap 10.7 (7.0-16.0) 05/11/18 04:05 BUN 9 mg/dL (7-25) 05/11/18 04:05 Creatinine 0.9 mg/dL (0.7-1.3) 05/11/18 04:05 Est GFR ( Amer) > 60.0 ml/min (>90) 05/11/18 04:05 Est GFR (Non-Af Amer) > 60.0 ml/min 05/11/18 04:05 BUN/Creatinine Ratio 10.0 05/11/18 04:05 Glucose 95 mg/dL (70-105) 05/11/18 04:05 Calcium 9.3 mg/dL (8.6-10.3) 05/11/18 04:05 Phosphorus 3.9 mg/dL (2.5-5.0) 05/10/18 03:35 Magnesium 2.2 mg/dL (1.9-2.7) 05/10/18 03:35 Total Bilirubin 0.7 mg/dL (0.3-1.0) 05/10/18 03:35 AST 18 U/L (13-39) 05/10/18 03:35 ALT 16 U/L (7-52) 05/10/18 03:35 Alkaline Phosphatase 42 U/L (34-104) 05/10/18 03:35 Ammonia 61 umol/L (16-53) H 05/12/18 15:20 Total Protein 5.8 gm/dL (6.0-8.3) L 05/10/18 03:35 Albumin 3.7 gm/dL (4.2-5.5) L 05/10/18 03:35 Globulin 2.1 gm/dL 05/10/18 03:35 Albumin/Globulin Ratio 1.8 (1.0-1.8) 05/10/18 03:35 Lipase 17 U/L (11-82) 05/08/18 05:20 TSH 1.94 uIU/ml (0.34-5.60) 05/08/18 05:20 Urine Source CLEAN C 05/11/18 16:50 Urine Color YELLOW 05/11/18 16:50 Urine Clarity HAZY (CLEAR) 05/11/18 16:50 Urine pH 6.5 (4.6 - 8.0) 05/11/18 16:50 Ur Specific [place] 1.020 (1.005-1.030) 05/11/18 16:50 Urine Protein TRACE mg/dL (NEGATIVE) 05/11/18 16:50 Urine Glucose (UA) NEGATIVE mg/dL (NEGATIVE) 05/11/18 16:50 Urine Ketones TRACE mg/dL (NEGATIVE) 05/11/18 16:50 Urine Blood NEGATIVE (NEGATIVE) 05/11/18 16:50 Urine Nitrate POSITIVE (NEGATIVE) H 05/11/18 16:50 Urine Bilirubin NEGATIVE (NEGATIVE) 05/11/18 16:50 Urine Urobilinogen 2.0 E.U./dL (0.2 - 1.0) 05/11/18 16:50 Ur Leukocyte Esterase SMALL (NEGATIVE) H 05/11/18 16:50 Urine RBC 0-2 /hpf (0-5) H 05/11/18 16:50 Urine WBC 6-10 /hpf (0-5) 05/11/18 16:50 Ur Epithelial Cells FEW /lpf (FEW) 05/11/18 16:50 Urine Bacteria MODERATE /hpf (NONE SEEN) H 05/11/18 16:50 - Physical Exam Vitals and I&O: Vital Signs Temp 98.1 F 05/13/18 08:00 Pulse 48 05/13/18 08:00 Resp 17 05/13/18 08:00 BP 110/39 05/13/18 08:00 Pulse Ox 96 05/13/18 08:00 Intake & Output 05/12/18 05/13/18 05/13/18 18:59 06:59 18:59 Intake Total 1050 Balance 1050 Weight (lbs) 78.925 kg 78.925 kg Intake: Oral 1050 Other: # Voids 3 # Bowel Movements 2 Stool Characteristics Soft Weight Source Bedscale Estimated Active Medications: Current Medications Acetaminophen (Tylenol) 650 mg PO Q6HR PRN PRN Reason: pain/fever>101 Stop: 07/11/18 11:59 Allopurinol (Zyloprim) 100 mg PO DAILY [facility] Stop: 07/07/18 08:59 Last Admin: 05/13/18 09:48 Dose: 100 mg Ascorbic Acid (Vitamin C) 500 mg PO DAILY [facility] Stop: 07/07/18 08:59 Last Admin: 05/13/18 09:48 Dose: 500 mg Ferrous Sulfate (Iron) 325 mg PO DAILY [facility] Stop: 07/07/18 08:59 Last Admin: 05/13/18 09:48 Dose: 325 mg Finasteride (Proscar) 5 mg PO DAILY [facility]; Protocol Stop: 07/07/18 08:59 Last Admin: 05/13/18 09:48 Dose: 5 mg Folic Acid (Folate) 1 mg PO DAILY [facility] Stop: 07/07/18 08:59 Last Admin: 05/13/18 09:48 Dose: 1 mg Lactulose (Cephulac) 20 gm PO TID [facility] Stop: 07/07/18 20:59 Last Admin: 05/13/18 14:07 Dose: Not Given Lorazepam (Ativan) 1 mg IVP Q4H PRN; Protocol PRN Reason: Agitation Stop: 07/06/18 20:38 Last Admin: 05/13/18 14:05 Dose: 1 mg Miscellaneous (Vte Chemical Prophylaxis Screen/ Admission) 1 ea [facility] PRN PRN PRN Reason: PROTOCOL Stop: 07/07/18 13:27 Polyethylene Glycol (Miralax) 17 gm PO DAILY [facility] Stop: 07/07/18 08:59 Last Admin: 05/13/18 09:49 Dose: 17 gm Quetiapine Fumarate (Seroquel) 25 mg PO BID [facility]; Protocol Stop: 07/07/18 08:59 Last Admin: 05/13/18 11:35 Dose: 25 mg Quetiapine Fumarate (Seroquel) 50 mg PO HS [facility]; Protocol Stop: 07/08/18 20:59 Last Admin: 05/12/18 20:35 Dose: 50 mg Simvastatin (Zocor) 20 mg PO HS [facility]; Protocol Stop: 07/06/18 20:59 Last Admin: 05/12/18 20:35 Dose: 20 mg Tamsulosin HCl (Flomax) 0.4 mg PO DAILY [facility] Stop: 07/07/18 08:59 Last Admin: 05/13/18 09:48 Dose: 0.4 mg Thiamine HCl (Vitamin B1) 200 mg PO DAILY [facility] Stop: 07/07/18 08:59 Last Admin: 05/13/18 09:48 Dose: 200 mg Valproate Sodium (Depakene) 250 mg PO BID [facility] Stop: 07/08/18 08:59 Last Admin: 05/13/18 11:34 Dose: 250 mg Zinc Sulfate (Zinc Sulfate) 220 mg PO DAILY [facility] Stop: 07/07/18 08:59 Last Admin: 05/13/18 09:48 Dose: 220 mg General: Alert, No acute distress HEENT: PERRLA, EOMI Neck: Supple Cardiovascular: Normal S1, Normal S2 Lungs: Clear to auscultation Abdomen: Bowel sounds Neurological: Other (decreased sensorium) Assessment/Plan - Assessment Assessment: acute psychosis dementia h/o wernicke's encephalopathy - Plan Plan: continue current orders Nutritional Asmnt/Malnutr-PDOC - Dietary Evaluation Malnutrition Findings (Please click <Entered> for more info): Nutritional Asmnt/Malnutrition Start: 05/11/18 11: 24 Text: Status: Complete Freq: Protocol: Document 05/11/18 11:24 YAN (Rec: 05/11/18 11:32 YAN JACK- FNS1) Nutritional Asmnt/Malnutrition Patient General Information Diagnosis encephalopathy Pertinent Medical Hx/Surgical Hx GOUT, Fe deficiency, wernicke' s encephalopathy, BPH, anxiety , major depression, GERD, hyperlipidemia, sinus bradycardia Subjective Information pt asleep with sitter at bedside Current Diet Order/ Nutrition Support low sodium 2g Na Pertinent Medications vit C, Fe folate, lactulose, miralax, vit B1, zinc sulfate Pertinent Labs 05/10: NA 142, K 3.5, CL 106, CO2 28.8, BUN 9, Cr 0.9, Ca 9. 3, glucose 95 Nutritional Hx/Data Height 1.83 m Height (Calculated Centimeters) 182.9 Current Weight (lbs) 82.554 kg Weight (Calculated Kilograms) 82.6 Weight (Calculated Grams) 81784.8 Body Mass Index (BMI) 24.7 Weight Status Approriate GI Symptoms GI Symptoms None Last 05/08 Cultural/Ethnic/[place] Belief unknown Usual diet at home regular Skin Integrity/Comment: maria isabel score19, intact Estimated Nutritional Goals BEE in Kcals: Using Current wt Calories/Kcals/Kg 25-30kcals/kg Kcals Calculated 2075-2490kcals/day Protein: Using Current wt Protein g/k-1.2g/kg Protein Calculated 83-100g/day Fluid: ml per MD Nutritional Problem 1. Problem Problem No nutrition diagnosis at this time Intervention/Recommendation Comments Recommend continuing 2g Na diet Expected Outcomes/Goals Expected Outcomes/Goals PO intake >75% of meals
--- NOTE | 2018-05-13 15:28 | Cardiology ---
ECHOCARDOIGRAM PATIENT OF: Dr. Larson M-MODE ECHOCARDIOGRAM: Mitral valve, anterior leaflet of mitral valve shows normal excursion, EF velocity. Posterior leaflet of mitral valve shows normal excursion. Left ventricular posterior wall shows increased thickness, normal excursion. Interventricular septum shows increased thickness, normal excursion, hypertrophy of the left ventricle, ejection fraction 52%. Left atrium normal. Aortic root shows normal dimension, normal excursion of aortic leaflets. CONCLUSION: Hypertrophy of the left ventricle, ejection fraction 52%. 2D ECHO: Long axis view showed normal sized left ventricle with hypertrophy of the left ventricle. Left atrium normal. Aortic root shows normal dimension, normal excursion of aortic leaflets. Short axis view of mitral valve normal. Short axis view of aortic valve normal. Apical four chamber view showed normal sized left ventricle, left atrium, right ventricle, right atrium, tricuspid and mitral valve. Ejection fraction 52%. CONCLUSION: Hypertrophy of the left ventricle, ejection fraction 52%. Doppler study shows moderate mitral regurgitation, moderate aortic regurgitation with pressure halftime of 598 milliseconds. Mild tricuspid regurgitation. Right ventricular systolic pressure 34 mmHg. [facility]# [id number]
[2018-05-14] MEDS: Ferrous Sulfate 325 MG TAB PO SCH (09:47)
[2018-05-14] MEDS: Multivitamin w/ Minerals Tab PO SCH (09:48)
[2018-05-14] MEDS: Lactulose 10 Gm/15 mL 30mL UDC PO SCH ×3 (09:49→20:59)
[2018-05-14] MEDS: POLYETHYLENE GLYCOL 3350 17 GM PACK PO SCH (09:49)
--- NOTE | 2018-05-14 11:37 | Internal Medicine Prog Note ---
Internal Medicine Subjective - Subjective Service Date: 05/14/18 Patient seen and examined:: with staff Patient is:: awake Per staff patient has:: tolerating meds Internal Medicine Objective - Results Result Diagrams: 05/10/18 03:35 05/11/18 04:05 Recent Labs: Laboratory Last Values WBC 4.7 Th/cmm (4.8-10.8) L 05/10/18 03:35 RBC 4.48 Mil/cmm (3.80-5.80) 05/10/18 03:35 Hgb 13.0 gm/dL (12-16) 05/10/18 03:35 Hct 38.5 % (41.0-60) L 05/10/18 03:35 MCV 85.9 fl (80-99) 05/10/18 03:35 MCH 29.1 pg (27.0-31.0) 05/10/18 03:35 MCHC Differential 33.9 pg (28.0-36.0) 05/10/18 03:35 RDW 13.1 % (11.5-20.0) 05/10/18 03:35 Plt Count 169 Th/cmm (150-400) 05/10/18 03:35 MPV 6.6 fl 05/10/18 03:35 Neutrophils % 59.5 % (40.0-80.0) 05/10/18 03:35 Lymphocytes % 25.8 % (20.0-50.0) 05/10/18 03:35 Monocytes % 12.3 % (2.0-10.0) H 05/10/18 03:35 Eosinophils % 1.6 % (0.0-5.0) 05/10/18 03:35 Basophils % 0.8 % (0.0-2.0) 05/10/18 03:35 Sodium 142 mEq/L (136-145) 05/11/18 04:05 Potassium 3.5 mEq/L (3.5-5.1) 05/11/18 04:05 Chloride 106 mEq/L (98-107) 05/11/18 04:05 Carbon Dioxide 28.8 mEq/L (21.0-31.0) 05/11/18 04:05 Anion Gap 10.7 (7.0-16.0) 05/11/18 04:05 BUN 9 mg/dL (7-25) 05/11/18 04:05 Creatinine 0.9 mg/dL (0.7-1.3) 05/11/18 04:05 Est GFR ( Amer) > 60.0 ml/min (>90) 05/11/18 04:05 Est GFR (Non-Af Amer) > 60.0 ml/min 05/11/18 04:05 BUN/Creatinine Ratio 10.0 05/11/18 04:05 Glucose 95 mg/dL (70-105) 05/11/18 04:05 Calcium 9.3 mg/dL (8.6-10.3) 05/11/18 04:05 Phosphorus 3.9 mg/dL (2.5-5.0) 05/10/18 03:35 Magnesium 2.2 mg/dL (1.9-2.7) 05/10/18 03:35 Total Bilirubin 0.7 mg/dL (0.3-1.0) 05/10/18 03:35 AST 18 U/L (13-39) 05/10/18 03:35 ALT 16 U/L (7-52) 05/10/18 03:35 Alkaline Phosphatase 42 U/L (34-104) 05/10/18 03:35 Ammonia 61 umol/L (16-53) H 05/12/18 15:20 Total Protein 5.8 gm/dL (6.0-8.3) L 05/10/18 03:35 Albumin 3.7 gm/dL (4.2-5.5) L 05/10/18 03:35 Globulin 2.1 gm/dL 05/10/18 03:35 Albumin/Globulin Ratio 1.8 (1.0-1.8) 05/10/18 03:35 Lipase 17 U/L (11-82) 05/08/18 05:20 TSH 1.94 uIU/ml (0.34-5.60) 05/08/18 05:20 Urine Source CLEAN C 05/11/18 16:50 Urine Color YELLOW 05/11/18 16:50 Urine Clarity HAZY (CLEAR) 05/11/18 16:50 Urine pH 6.5 (4.6 - 8.0) 05/11/18 16:50 Ur Specific [place] 1.020 (1.005-1.030) 05/11/18 16:50 Urine Protein TRACE mg/dL (NEGATIVE) 05/11/18 16:50 Urine Glucose (UA) NEGATIVE mg/dL (NEGATIVE) 05/11/18 16:50 Urine Ketones TRACE mg/dL (NEGATIVE) 05/11/18 16:50 Urine Blood NEGATIVE (NEGATIVE) 05/11/18 16:50 Urine Nitrate POSITIVE (NEGATIVE) H 05/11/18 16:50 Urine Bilirubin NEGATIVE (NEGATIVE) 05/11/18 16:50 Urine Urobilinogen 2.0 E.U./dL (0.2 - 1.0) 05/11/18 16:50 Ur Leukocyte Esterase SMALL (NEGATIVE) H 05/11/18 16:50 Urine RBC 0-2 /hpf (0-5) H 05/11/18 16:50 Urine WBC 6-10 /hpf (0-5) 05/11/18 16:50 Ur Epithelial Cells FEW /lpf (FEW) 05/11/18 16:50 Urine Bacteria MODERATE /hpf (NONE SEEN) H 05/11/18 16:50 - Physical Exam Vitals and I&O: Vital Signs Temp 97.1 F 05/14/18 08:00 Pulse 47 05/14/18 08:00 Resp 15 05/14/18 08:00 BP 125/63 05/14/18 08:00 Pulse Ox 98 05/14/18 08:00 Intake & Output 05/13/18 05/14/18 05/14/18 18:59 06:59 18:59 Intake Total 1000 240 Balance 1000 240 Weight (lbs) 174 lb 174 lb Intake: Oral 1000 240 Other: # Voids 4 3 # Bowel Movements 1 0 Stool Characteristics Liquid Weight Source Estimated Bedscale Active Medications: Current Medications Acetaminophen (Tylenol) 650 mg PO Q6HR PRN PRN Reason: pain/fever>101 Stop: 07/11/18 11:59 Allopurinol (Zyloprim) 100 mg PO DAILY [facility] Stop: 07/07/18 08:59 Last Admin: 05/14/18 09:47 Dose: 100 mg Ascorbic Acid (Vitamin C) 500 mg PO DAILY [facility] Stop: 07/07/18 08:59 Last Admin: 05/14/18 09:49 Dose: 500 mg Ferrous Sulfate (Iron) 325 mg PO DAILY [facility] Stop: 07/07/18 08:59 Last Admin: 05/14/18 09:47 Dose: 325 mg Finasteride (Proscar) 5 mg PO DAILY [facility]; Protocol Stop: 07/07/18 08:59 Last Admin: 05/14/18 09:48 Dose: 5 mg Folic Acid (Folate) 1 mg PO DAILY [facility] Stop: 07/07/18 08:59 Last Admin: 05/14/18 09:48 Dose: 1 mg Lactulose (Cephulac) 20 gm PO TID [facility] Stop: 07/07/18 20:59 Last Admin: 05/14/18 09:49 Dose: 20 gm Lorazepam (Ativan) 1 mg IVP Q4H PRN; Protocol PRN Reason: Agitation Stop: 07/06/18 20:38 Last Admin: 05/13/18 14:05 Dose: 1 mg Miscellaneous (Vte Chemical Prophylaxis Screen/ Admission) 1 ea [facility] PRN PRN PRN Reason: PROTOCOL Stop: 07/07/18 13:27 Polyethylene Glycol (Miralax) 17 gm PO DAILY [facility] Stop: 07/07/18 08:59 Last Admin: 05/14/18 09:49 Dose: 17 gm Quetiapine Fumarate (Seroquel) 25 mg PO BID TORIE; Protocol Stop: 07/07/18 08:59 Last Admin: 05/14/18 09:48 Dose: 25 mg Quetiapine Fumarate (Seroquel) 50 mg PO HS TORIE; Protocol Stop: 07/08/18 20:59 Last Admin: 05/13/18 22:07 Dose: 50 mg Simvastatin (Zocor) 20 mg PO HS TORIE; Protocol Stop: 07/06/18 20:59 Last Admin: 05/13/18 22:07 Dose: 20 mg Tamsulosin HCl (Flomax) 0.4 mg PO DAILY TORIE Stop: 07/07/18 08:59 Last Admin: 05/14/18 09:48 Dose: 0.4 mg Thiamine HCl (Vitamin B1) 200 mg PO DAILY TORIE Stop: 07/07/18 08:59 Last Admin: 05/14/18 09:48 Dose: 200 mg Valproate Sodium (Depakene) 250 mg PO BID [facility] Stop: 07/08/18 08:59 Last Admin: 05/14/18 09:49 Dose: 250 mg Zinc Sulfate (Zinc Sulfate) 220 mg PO DAILY [facility] Stop: 07/07/18 08:59 Last Admin: 05/14/18 09:49 Dose: 220 mg General: alert HEENT: NC/AT, PERRLA Neck: Supple Lungs: CTAB Cardiovascular: RRR, without murmur Abdomen: soft, non-tender, non-distended, positive bowel sound Neurological: no change Internal Medicine Assmt/Plan - Assessment Assessment: acute psychosis dementia h/o wernicke's encephalopathy - Plan Plan: f/u labs in am continue current plan of care Nutritional Asmnt/Malnutr-PDOC - Dietary Evaluation Malnutrition Findings (Please click <Entered> for more info): Nutritional Asmnt/Malnutrition Start: 05/11/18 11: 24 Text: Status: Complete Freq: Protocol: Document 05/11/18 11:24 YAN (Rec: 05/11/18 11:32 YAN [id number]) Nutritional Asmnt/Malnutrition Patient General Information Diagnosis encephalopathy Pertinent Medical Hx/Surgical Hx GOUT, Fe deficiency, wernicke' s encephalopathy, BPH, anxiety , major depression, GERD, hyperlipidemia, sinus bradycardia Subjective Information pt asleep with sitter at bedside Current Diet Order/ Nutrition Support low sodium 2g Na Pertinent Medications vit C, Fe folate, lactulose, miralax, vit B1, zinc sulfate Pertinent Labs 05/10: NA 142, K 3.5, CL 106, CO2 28.8, BUN 9, Cr 0.9, Ca 9. 3, glucose 95 Nutritional Hx/Data Height 6 ft Height (Calculated Centimeters) 182.9 Current Weight (lbs) 182 lb Weight (Calculated Kilograms) 82.6 Weight (Calculated Grams) 54920.8 Body Mass Index (BMI) 24.7 Weight Status Approriate GI Symptoms GI Symptoms None Last BM 05/08 Cultural/Ethnic/Sikhism Belief unknown Usual diet at home regular Skin Integrity/Comment: maria isabel score19, intact Estimated Nutritional Goals BEE in Kcals: Using Current wt Calories/Kcals/Kg 25-30kcals/kg Kcals Calculated 5-2490kcals/day Protein: Using Current wt Protein g/k-1.2g/kg Protein Calculated 83-100g/day Fluid: ml per MD Nutritional Problem 1. Problem Problem No nutrition diagnosis at this time Intervention/Recommendation Comments Recommend continuing 2g Na diet Expected Outcomes/Goals Expected Outcomes/Goals PO intake >75% of meals
[2018-05-14 12:21] LABS: % BASOPHILS 0.8 % (0.0-2.0); % EOSINOPHILS 1.9 % (0.0-5.0); % LYMPHOCYTES 25.8 % (20.0-50.0); % MONOCYTES 9.6 % (2.0-10.0); % NEUTROPHILS 61.9 % (40.0-80.0); EOSINOPHILE ABSOLUTE 0.1 Th/cmm (0.1-0.4); HEMATOCRIT 41.1 % (41.0-60); HEMOGLOBIN 13.8 gm/dL (12-16); LYMPHOCYTE ABSOLUTE 1.1 Th/cmm (1.5-3.0); MEAN CELL VOLUME 86.2 fl (80-99); MEAN CORPUSCULAR HEMOGLOBIN 28.8 pg (27.0-31.0); MEAN CORPUSCULAR HGB CONC 33.4 pg (28.0-36.0); MEAN PLATELET VOLUME 6.8 fl; MONOCYTE ABSOLUTE 0.4 Th/cmm (0.3-1.0); NEUTROPHILE ABSOLUTE 2.6 Th/cmm (1.8-8.0); PLATELET COUNT 215 Th/cmm (150-400); RED BLOOD COUNT 4.77 Mil/cmm (3.80-5.80); RED CELL DISTRIBUTION WIDTH 13.2 % (11.5-20.0); WHITE BLOOD COUNT 4.2 Th/cmm (4.8-10.8)
[2018-05-14 12:44] LABS: ANION GAP 10.2 (7.0-16.0); BUN - UREA NITROGEN 9 mg/dL (7-25); CALCIUM SERUM 9.3 mg/dL (8.6-10.3); CARBON DIOXIDE 29.6 mEq/L (21.0-31.0); CHLORIDE 107 mEq/L (98-107); CREATININE - SERUM 0.7 mg/dL (0.7-1.3); GFR AFRICAN-AMERICAN > 60.0 ml/min (>90); GFR NON AFRICAN-AMERICAN > 60.0 ml/min; GLUCOSE 117 mg/dL (70-105); POTASSIUM SERUM 3.8 mEq/L (3.5-5.1); SODIUM SERUM 143 mEq/L (136-145)
--- NOTE | 2018-05-15 05:29 | Consultation ---
DATE OF CONSULTATION: 05/14/2018 NEUROLOGY CONSULT HISTORY OF PRESENT ILLNESS: The patient is a 68-year-old in the [facility], came in with increasing confusion, agitation, and at times inappropriate behavior. No seizures noted. PAST MEDICAL HISTORY: 1. The patient has previous history of alcohol abuse. In fact, he ended up in the hospital with Wernicke's encephalopathy. 2. The patient with history of previous brain tumor and left frontal meningioma surgery. 3. History of dementia, psychosis. MEDICATIONS: As per reconciliation, here the patient is on vitamin C, folic acid, Proscar, lactulose, lorazepam p.r.n., quetiapine, simvastatin, thiamine 200 mg p.o. daily, Depakote 250 mg b.i.d. REVIEW OF SYSTEMS: Twelve point negative except for above. PHYSICAL EXAMINATION: VITAL SIGNS: Temperature 97.4, blood pressure 110/67, pulse 70. NECK: Supple, no bruits. HEART: Sounds S1, S2. LUNGS: Clear. NEUROLOGIC: The patient lying in bed. He is sleepy. He will awaken and then go back to sleep. The patient mumbles, but he cannot give me any coherent history. Pupils react to light. The patient looks to the right and left. The patient will lift both arms up and lift both legs up. Reflexes about -1 in upper extremity and -1 in lower extremity. ASSESSMENT: 1. Encephalopathy. 2. History of alcohol abuse. 3. Brain tumor with previous meningioma. CT scan shows left frontal encephalomalacia. No acute process noted. 4. The patient with elevated ammonia. 5. History of psychosis. 6. History of prostatic hypertrophy. 7. History of hyperlipidemia. 8. Iron deficiency anemia. 9. The patient with arrhythmia and sinus bradycardia. PLAN: Continue with present treatment. JOB# [id number]
[2018-05-15] MEDS: POLYETHYLENE GLYCOL 3350 17 GM PACK PO SCH (09:03)
[2018-05-15] MEDS: Ferrous Sulfate 325 MG TAB PO SCH (09:04)
[2018-05-15] MEDS: Multivitamin w/ Minerals Tab PO SCH (09:04)
[2018-05-15] MEDS: Lactulose 10 Gm/15 mL 30mL UDC PO SCH ×2 (09:06→13:46)
--- NOTE | 2018-05-15 12:38 | Consultation ---
DATE OF CONSULTATION: 05/14/2018 JUSTIFICATION FOR HOSPITALIZATION: A 68-year-old male admitted to the hospital because of increased confusion, also agitation, more irritable, socially inappropriate at times. Staff notes he has been somewhat tired, AO to name, place, not situation, not year. He is not quite sure about the month. He does know the day of the week. The patient states his mood is "okay. Anxiety "okay." Staff noting he has been sleeping most of the day. Still appearing quite confused. PAST PSYCHIATRIC HISTORY: Apparently with Wernicke encephalitis. ALLERGIES: No known drug allergies. SOCIAL HISTORY: Living in a correction. States he was born in [place]. MENTAL STATUS EXAMINATION: Stated age. Fair eye contact. Speech decreased content, was praying. Mood "okay." Affect flat. Thought processes were somewhat disoriented. No SI, no HI. No aggressive symptoms. No overt psychotic symptoms. Insight and judgment diminished. Confused. PROVISIONAL DIAGNOSIS: No changes. RECOMMENDATIONS AND PLAN: Medications were reviewed. Continue to monitor. The patient is somewhat lethargic on exam. We will consider lowering dosing of Seroquel in the morning. [facility]# [id number]
--- NOTE | 2018-05-15 13:08 | General Progress Note ---
Subjective - Review of Systems Events since last encounter: patient continues to be irritable confused Subjective: pt. has increasing confusion Objective - Results Result Diagrams: 05/14/18 12:12 05/14/18 12:12 Recent Labs: Laboratory Last Values WBC 4.2 Th/cmm (4.8-10.8) L 05/14/18 12:12 RBC 4.77 Mil/cmm (3.80-5.80) 05/14/18 12:12 Hgb 13.8 gm/dL (12-16) 05/14/18 12:12 Hct 41.1 % (41.0-60) 05/14/18 12:12 MCV 86.2 fl (80-99) 05/14/18 12:12 MCH 28.8 pg (27.0-31.0) 05/14/18 12:12 MCHC Differential 33.4 pg (28.0-36.0) 05/14/18 12:12 RDW 13.2 % (11.5-20.0) 05/14/18 12:12 Plt Count 215 Th/cmm (150-400) 05/14/18 12:12 MPV 6.8 fl 05/14/18 12:12 Neutrophils % 61.9 % (40.0-80.0) 05/14/18 12:12 Lymphocytes % 25.8 % (20.0-50.0) 05/14/18 12:12 Monocytes % 9.6 % (2.0-10.0) 05/14/18 12:12 Eosinophils % 1.9 % (0.0-5.0) 05/14/18 12:12 Basophils % 0.8 % (0.0-2.0) 05/14/18 12:12 Sodium 143 mEq/L (136-145) 05/14/18 12:12 Potassium 3.8 mEq/L (3.5-5.1) 05/14/18 12:12 Chloride 107 mEq/L (98-107) 05/14/18 12:12 Carbon Dioxide 29.6 mEq/L (21.0-31.0) 05/14/18 12:12 Anion Gap 10.2 (7.0-16.0) 05/14/18 12:12 BUN 9 mg/dL (7-25) 05/14/18 12:12 Creatinine 0.7 mg/dL (0.7-1.3) 05/14/18 12:12 Est GFR ( Amer) > 60.0 ml/min (>90) 05/14/18 12:12 Est GFR (Non-Af Amer) > 60.0 ml/min 05/14/18 12:12 BUN/Creatinine Ratio 12.9 05/14/18 12:12 Glucose 117 mg/dL (70-105) H 05/14/18 12:12 Calcium 9.3 mg/dL (8.6-10.3) 05/14/18 12:12 Phosphorus 3.9 mg/dL (2.5-5.0) 05/10/18 03:35 Magnesium 2.2 mg/dL (1.9-2.7) 05/10/18 03:35 Total Bilirubin 0.7 mg/dL (0.3-1.0) 05/10/18 03:35 AST 18 U/L (13-39) 05/10/18 03:35 ALT 16 U/L (7-52) 05/10/18 03:35 Alkaline Phosphatase 42 U/L (34-104) 05/10/18 03:35 Ammonia 61 umol/L (16-53) H 05/14/18 12:12 Total Protein 5.8 gm/dL (6.0-8.3) L 05/10/18 03:35 Albumin 3.7 gm/dL (4.2-5.5) L 05/10/18 03:35 Globulin 2.1 gm/dL 05/10/18 03:35 Albumin/Globulin Ratio 1.8 (1.0-1.8) 05/10/18 03:35 Lipase 17 U/L (11-82) 05/08/18 05:20 TSH 1.94 uIU/ml (0.34-5.60) 05/08/18 05:20 Urine Source CLEAN C 05/11/18 16:50 Urine Color YELLOW 05/11/18 16:50 Urine Clarity HAZY (CLEAR) 05/11/18 16:50 Urine pH 6.5 (4.6 - 8.0) 05/11/18 16:50 Ur Specific [place] 1.020 (1.005-1.030) 05/11/18 16:50 Urine Protein TRACE mg/dL (NEGATIVE) 05/11/18 16:50 Urine Glucose (UA) NEGATIVE mg/dL (NEGATIVE) 05/11/18 16:50 Urine Ketones TRACE mg/dL (NEGATIVE) 05/11/18 16:50 Urine Blood NEGATIVE (NEGATIVE) 05/11/18 16:50 Urine Nitrate POSITIVE (NEGATIVE) H 05/11/18 16:50 Urine Bilirubin NEGATIVE (NEGATIVE) 05/11/18 16:50 Urine Urobilinogen 2.0 E.U./dL (0.2 - 1.0) 05/11/18 16:50 Ur Leukocyte Esterase SMALL (NEGATIVE) H 05/11/18 16:50 Urine RBC 0-2 /hpf (0-5) H 05/11/18 16:50 Urine WBC 6-10 /hpf (0-5) 05/11/18 16:50 Ur Epithelial Cells FEW /lpf (FEW) 05/11/18 16:50 Urine Bacteria MODERATE /hpf (NONE SEEN) H 05/11/18 16:50 - Physical Exam Vitals and I&O: Vital Signs Temp 97.6 F 05/15/18 04:00 Pulse 70 05/15/18 04:00 Resp 18 05/15/18 04:00 BP 119/81 05/15/18 04:00 Pulse Ox 96 05/15/18 04:00 Intake & Output 05/14/18 05/15/18 05/15/18 18:59 06:59 18:59 Intake Total 600 240 Balance 600 240 Weight (lbs) 78.925 kg 78.925 kg Intake: Oral 600 240 Other: # Voids 2 1 # Bowel Movements 1 Weight Source Bedscale Bedscale Active Medications: Current Medications Acetaminophen (Tylenol) 650 mg PO Q6HR PRN PRN Reason: pain/fever>101 Stop: 07/11/18 11:59 Allopurinol (Zyloprim) 100 mg PO DAILY [facility] Stop: 07/07/18 08:59 Last Admin: 05/15/18 09:04 Dose: 100 mg Ascorbic Acid (Vitamin C) 500 mg PO DAILY [facility] Stop: 07/07/18 08:59 Last Admin: 05/15/18 09:04 Dose: 500 mg Ferrous Sulfate (Iron) 325 mg PO DAILY [facility] Stop: 07/07/18 08:59 Last Admin: 05/15/18 09:04 Dose: 325 mg Finasteride (Proscar) 5 mg PO DAILY [facility]; Protocol Stop: 07/07/18 08:59 Last Admin: 05/15/18 09:04 Dose: 5 mg Folic Acid (Folate) 1 mg PO DAILY TOR[facility] Stop: 07/07/18 08:59 Last Admin: 05/15/18 09:04 Dose: 1 mg Lactulose (Cephulac) 20 gm PO TID TOR[facility] Stop: 07/07/18 20:59 Last Admin: 05/15/18 09:06 Dose: 20 gm Levofloxacin (Levaquin) 500 mg PO DAILY [facility] Stop: 07/14/18 12:59 Lorazepam (Ativan) 1 mg IVP Q4HR PRN; Protocol PRN Reason: Agitation Stop: 07/14/18 12:35 Last Admin: 05/15/18 12:50 Dose: 1 mg Miscellaneous (Vte Chemical Prophylaxis Screen/ Admission) 1 ea [facility] PRN PRN PRN Reason: PROTOCOL Stop: 07/07/18 13:27 Polyethylene Glycol (Miralax) 17 gm PO DAILY [facility] Stop: 07/07/18 08:59 Last Admin: 05/15/18 09:03 Dose: 17 gm Quetiapine Fumarate (Seroquel) 50 mg PO HS [facility]OR[facility]; Protocol Stop: 07/08/18 20:59 Last Admin: 05/14/18 20:59 Dose: 50 mg Quetiapine Fumarate (Seroquel) 12.5 mg PO BID [facility]; Protocol Stop: 07/13/18 16:59 Last Admin: 05/15/18 09:04 Dose: 12.5 mg Simvastatin (Zocor) 20 mg PO HS TORIE; Protocol Stop: 07/06/18 20:59 Last Admin: 05/14/18 20:59 Dose: 20 mg Tamsulosin HCl (Flomax) 0.4 mg PO DAILY [facility] Stop: 07/07/18 08:59 Last Admin: 05/15/18 09:04 Dose: 0.4 mg Thiamine HCl (Vitamin B1) 200 mg PO DAILY [facility] Stop: 07/07/18 08:59 Last Admin: 05/15/18 09:06 Dose: 200 mg Valproate Sodium (Depakene) 250 mg PO BID [facility] Stop: 07/08/18 08:59 Last Admin: 05/15/18 09:03 Dose: 250 mg Zinc Sulfate (Zinc Sulfate) 220 mg PO DAILY [facility] Stop: 07/07/18 08:59 Last Admin: 05/15/18 09:04 Dose: 220 mg General: Alert, No acute distress HEENT: PERRLA, EOMI Neck: Supple Cardiovascular: Normal S1, Normal S2 Lungs: Clear to auscultation Abdomen: Bowel sounds Neurological: Other (decreased sensorium) Assessment/Plan - Assessment Assessment: acute psychosis dementia h/o wernicke's encephalopathy - Plan Plan: continue current orders Nutritional Asmnt/Malnutr-PDOC - Dietary Evaluation Malnutrition Findings (Please click <Entered> for more info): Nutritional Asmnt/Malnutrition Start: 05/11/18 11: 24 Text: Status: Complete Freq: Protocol: Document 05/11/18 11:24 YAN (Rec: 05/11/18 11:32 YAN [id number]) Nutritional Asmnt/Malnutrition Patient General Information Diagnosis encephalopathy Pertinent Medical Hx/Surgical Hx GOUT, Fe deficiency, wernicke' s encephalopathy, BPH, anxiety , major depression, GERD, hyperlipidemia, sinus bradycardia Subjective Information pt asleep with sitter at bedside Current Diet Order/ Nutrition Support low sodium 2g Na Pertinent Medications vit C, Fe folate, lactulose, miralax, vit B1, zinc sulfate Pertinent Labs 05/10: NA 142, K 3.5, CL 106, CO2 28.8, BUN 9, Cr 0.9, Ca 9. 3, glucose 95 Nutritional Hx/Data Height 1.83 m Height (Calculated Centimeters) 182.9 Current Weight (lbs) 82.554 kg Weight (Calculated Kilograms) 82.6 Weight (Calculated Grams) 32368.8 Body Mass Index (BMI) 24.7 Weight Status Approriate GI Symptoms GI Symptoms None Last BM 05/08 Cultural/Ethnic/Sikhism Belief unknown Usual diet at home regular Skin Integrity/Comment: maria isabel score19, intact Estimated Nutritional Goals BEE in Kcals: Using Current wt Calories/Kcals/Kg 25-30kcals/kg Kcals Calculated 2075-2490kcals/day Protein: Using Current wt Protein g/k-1.2g/kg Protein Calculated 83-100g/day Fluid: ml per MD Nutritional Problem 1. Problem Problem No nutrition diagnosis at this time Intervention/Recommendation Comments Recommend continuing 2g Na diet Expected Outcomes/Goals Expected Outcomes/Goals PO intake >75% of meals
== END 2018-05-15 17:22 | DRG 690 ==
LOC: ER 15:14 → TELE 20:00 → ICU 05-09 21:54 → TELE 05-12 20:16 → MSI 05-13 18:33
PROVIDERS: ADMIT Internal Medicine; ATTEND Internal Medicine
DX: N39.0 Urinary tract infection, site not specified (principal); E51.2 Wernicke's encephalopathy; F23 Brief psychotic disorder; F03.91 Unspecified dementia, unspecified severity, with behavioral disturbance; K72.90 Hepatic failure, unspecified without coma; R00.1 Bradycardia, unspecified; N40.0 Benign prostatic hyperplasia without lower urinary tract symptoms; F32.9 Major depressive disorder, single episode, unspecified; F41.9 Anxiety disorder, unspecified; M10.9 Gout, unspecified; E78.5 Hyperlipidemia, unspecified; K21.9 Gastro-esophageal reflux disease without esophagitis; D50.9 Iron deficiency anemia, unspecified; E87.6 Hypokalemia; G93.89 Other specified disorders of brain; Z88.0 Allergy status to penicillin; Z85.841 Personal history of malignant neoplasm of brain
CPT/HCPCS: 36415-UA; 70450-TC; 80048-TC; 80053-TC; 81001-TC; 82140-TC; 83690-TC; 83735-TC; 84100-TC; 84443-TC; 85025-TC; 87086-90; 93005; 94760; J2060; Z7610

== ENCOUNTER 2018-05-15 17:32 | Inpatient (IN) | payer MEDICARE, BC ==
[2018-05-15 18:13] VITALS: BP 109/74
[2018-05-15] MEDS ORDERED: Magnesium Hydroxide (MOM) 30 mL UDC PO PRN (18:34)
[2018-05-15] MEDS ORDERED: Maalox 30 mL Cup PO PRN (18:34)
[2018-05-15] MEDS: Lactulose 10 Gm/15 mL 30mL UDC PO SCH (21:05)
[2018-05-16] MEDS: POLYETHYLENE GLYCOL 3350 17 GM PACK PO SCH (08:58)
[2018-05-16] MEDS: Lactulose 10 Gm/15 mL 30mL UDC PO SCH ×3 (08:59→20:48)
[2018-05-16] MEDS: Ferrous Sulfate 325 MG TAB PO SCH (08:59)
[2018-05-16] MEDS: Multivitamin Tab PO SCH (09:01)
[2018-05-17] MEDS: Lactulose 10 Gm/15 mL 30mL UDC PO SCH ×3 (09:24→21:01)
[2018-05-17] MEDS: POLYETHYLENE GLYCOL 3350 17 GM PACK PO SCH (09:24)
[2018-05-17] MEDS: Multivitamin Tab PO SCH (09:25)
[2018-05-17] MEDS: Ferrous Sulfate 325 MG TAB PO SCH (09:25)
[2018-05-17] MEDS ORDERED: Probiotic Screen MC PRN (13:56)
--- NOTE | 2018-05-17 22:24 | History and Physical ---
History of Present Illness - HPI Chief Complaint: psychosis HPI: 68 yr old male admitted to [facility] due to psychosis. Vital Signs: Last Vital Signs Temp 97.4 F 05/17/18 15:00 Pulse 63 05/17/18 15:00 Resp 20 05/17/18 15:00 BP 117/74 05/17/18 15:00 Pulse Ox 97 05/17/18 15:00 Past Medical History Other History: Hepatic Encephalopathy, Gout, Fe deficiency, wernicke's encephalopathy, BPH, anxiety, major depression, GERD, hyperlipidimia, sinus bradycardia Family Medical History - Family Member Mother History Unknown: Yes Ethnicity: Unknown Living Status: Unknown Hx Family Cancer: (UNKNOWN) Hx Family Coronary Artery Disease: (UNKNOWN) Hx Family Congestive Heart Failure: (UNKNOWN) Hx Family Hypertension: (UNKNOWN) Hx Family Stroke: (UNKNOWN) Hx Family Diabetes: (UNKNOWN) Hx Family Seizures: (UNKNOWN) Hx Family Dementia: (UNKNOWN) Hx Family AIDS: (UNKNOWN) Hx Family COPD: (UNKNOWN) Hx Family Hepatitis: (UNKNOWN) Hx Family Psychiatric Problems: (UNKNOWN) Hx Family Tuberculosis: (UNKNOWN) Social History Smoke: No Alcohol: None Drugs: None Lives: Prison - Medications Home Medications: Home Medication Medication Instructions Recorded Type Acetaminophen [Pain Reliever] 650 mg PO DAILY 05/07/18 History Allopurinol 100 mg PO DAILY 05/07/18 History Ascorbic Acid 500 mg PO DAILY 05/07/18 History Cranberry Fruit Extract [Cranberry] 425 mg PO DAILY 05/07/18 History Ferrous Sulfate 325 mg PO DAILY 05/07/18 History Finasteride [Proscar*] 5 mg PO DAILY 05/07/18 History Folic Acid [Folate*] 1 mg PO DAILY 05/07/18 History Multivitamin-Min/Iron/FA/Vit K 1 each PO DAILY 05/07/18 History [Multi-Day Plus Minerals Tablet] Polyethylene Glycol 3350 [Miralax] 17 gm PO DAILY 05/07/18 History Simvastatin [Zocor*] 20 mg PO HS 05/07/18 History Tamsulosin HCl [Flomax] 0.4 mg PO DAILY 05/07/18 History Thiamine HCl [B-1] 2 tab PO DAILY 05/07/18 History Valproic Acid [Depakene] 250 mg PO BID 05/07/18 History Zinc Sulfate 220 mg PO DAILY 05/07/18 History Acetaminophen [Tylenol] 650 mg PO Q6HR PRN tab 05/15/18 Rx Lactulose [Cephulac] 20 gm PO TID udc 05/15/18 Rx Levofloxacin [Levaquin] 500 mg PO DAILY tab 05/15/18 Rx QUEtiapine Fumarate [SEROquel] 12.5 mg PO BID tab 05/15/18 Rx - Allergies Allergies/Adverse Reactions: Allergies Allergy/AdvReac Type Severity Reaction Status Date / Time Penicillins [PCN] Allergy Verified 04/11/18 17:45 Review of Systems - Review of Systems Constitutional: Report: No Significant Eyes: Report: No Significant ENT: Report: No Significant Respiratory: Report: No Significant Cardiovascular: Report: No Significant Gastrointestinal: Report: No Significant Genitourinary: Report: No Significant Neurological: Report: No Significant Physical Exam - Physical Exam HEENT: Report: Ears Nose Throat within normal limits Neck: Report: Within normal limits Cardiovascular Systems: Report: +s1/s2 noted, Regular, Rate and Rhythm Respiratory: Report: Breath Sounds are within normal limits Abdomen: Report: Non-tender to palpation Skin: Report: Color of skin is within normal limits Neuro/Psych: Report: Mood affect is within normal limits - Assessment Assessment: Hepatic Encephalopathy Gout Fe deficiency wernicke's encephalopathy BPH anxiety major depression GERD hyperlipidimia sinus bradycardia - Plan Plan: cpm
--- NOTE | 2018-05-18 07:53 | Psychosocial Evaluation ---
DATE OF SERVICE: PSYCHIATRIC INITIAL EVALUATION AND MENTAL STATUS EXAM PATIENT'S AGE: 68-year-old. SEX: Male. PHYSICIAN: Dr. Delarosa. CHIEF COMPLAINT: Agitation and confusion. HISTORY OF PRESENT ILLNESS: The patient is a 68-year-old male who was in treatment in the hospital because of agitation and irritability. The patient also was increasingly angry and irritable. He also was not able to follow any of the staff directions. The patient was admitted to the hospital because of increased irritability and agitation and aggressive behavior and unable to follow staff directions because of his confusion. PAST PSYCHIATRIC HISTORY: The patient was hospitalized on 05/07/2018 at [facility]. PAST MEDICAL HISTORY: As per H and P. SOCIAL HISTORY: The patient lives in nursing homes. No known alcohol or drug use. He has been in [facility]. ALLERGIES: No known allergies. MENTAL STATUS EXAMINATION: The patient appears his stated age. Good eye contact. Low tone and rate of speech. Thought processes mainly circumstantial and tangential with flight of ideas. The patient denies auditory or visual hallucinations, but seems preoccupied. The patient denies suicidal or homicidal ideations. Alert but seems to be disoriented to time, place, and person, on sedation. Impaired immediate and recent memory, but intact remote memory and remember it is . Poor insight and judgement. ASSESSMENT: PRIMARY DIAGNOSIS: Unspecified psychosis. SECONDARY DIAGNOSIS: Rule out dementia and psychosis. TREATMENT PLAN: Continue to monitor his behavior and his condition closely. Also, continue Depakote and Seroquel and we will adjust the dose. ESTIMATED LENGTH OF STAY: 5-7 days. THE PATIENT'S STRENGTHS AND WEAKNESSES: The patient's strength is not clear at this time. Weaknesses are his ineffective coping and poor judgment. AFTER DISCHARGE PLAN: The patient will return to [facility] with plans for outpatient treatment and followup. JOB# [id number]
[2018-05-18] MEDS: Lactulose 10 Gm/15 mL 30mL UDC PO SCH ×2 (08:57→13:43)
[2018-05-18] MEDS: POLYETHYLENE GLYCOL 3350 17 GM PACK PO SCH (08:58)
[2018-05-18] MEDS ORDERED: Lactobacillus Rhamnosus GG 15 Billion CFU CAP.SPRINK PO SCH (09:00)
[2018-05-18] MEDS: Ferrous Sulfate 325 MG TAB PO SCH (09:28)
[2018-05-18] MEDS: Multivitamin Tab PO SCH (09:29)
--- NOTE | 2018-05-18 09:34 | Progress Notes ---
DATE: 05/17/2018 PSYCHIATRIC PROGRESS NOTE Chart reviewed and the patient interviewed. Also discussed the patient's condition with the staff and reviewed records and labs. The patient is still confused and agitated. The patient also is still actively hallucinating and talking to himself and responding to stimuli. The patient also has difficulty following staff directions. The patient also is restless and in angry moods. He also is suspicious. Otherwise, the patient is compliant with taking his medications with no side effects of medications. ASSESSMENT: The patient is still agitated and in irritable mood. TREATMENT PLAN: Continue to monitor his behavior and his condition closely. Also, continue adjusting psychotropic medications and work on his confusion and his poor impulse control. [facility]# [id number]
[2018-05-18] MEDS ORDERED: Haloperidol Lactate 5 mg/mL 1mL Vial IM ONE (13:30)
[2018-05-18] MEDS ORDERED: Haloperidol Lactate 5 mg/mL 1mL Vial ONE (13:31)
--- NOTE | 2018-05-18 18:03 | Progress Notes ---
DATE: 05/18/2018 SUBJECTIVE: Chart reviewed and the patient interviewed. Also, discussed the patient's condition with the staff and reviewed records and labs. The patient continued to be suspicious and is still anxious. The patient also is guarded. Also seems to be confused. The patient also is forgetful and needs lots of redirections. He also still has episodes of talking to himself. Otherwise, the patient is compliant with taking his medications with no side effects of medications. ASSESSMENT: The patient is still confused and is still paranoid. TREATMENT PLAN: Continue to monitor his behavior and his condition closely. Also, continue to work on his adjusting psychotropic medications and continue to follow up. JOB# [id number]
--- NOTE | 2018-05-18 20:35 | Progress Notes ---
DATE: 05/18/2018 SUBJECTIVE: The patient was seen at the dining area. The patient appears to be guarded and irritable. The patient is a poor historian, episodes of agitation, otherwise the patient is in no acute distress. OBJECTIVE: VITAL SIGNS: Temperature 97.4, heart rate 63, respirations 20, blood pressure 117/74, 97% on room air. HEENT: Head is atraumatic and normocephalic. Eyes: Bilateral conjunctivae are clear. Bilateral pupils equal, round, and reactive. NECK: Supple. No JVD. CARDIOVASCULAR: S1 and S2, without murmur. PULMONARY: Clear to auscultation. GASTROINTESTINAL: Soft and nontender without guarding. Positive bowel sounds. MUSCULOSKELETAL: No clubbing. No cyanosis noted. ASSESSMENT: 1. Psychosis. 2. Dementia. 3. Iron deficiency anemia. 4. Gastroesophageal reflux disease. 5. Hyperlipidemia. 6. Anxiety. 7. Gout. PLAN: We will keep the patient in inpatient psychiatric unit. We will follow up with a psychiatrist to monitor the patient's condition and behavior. Treatment plans were discussed with the patient's nurse. Treatment plans were discussed with Dr. Larson. JOB# [id number]
--- NOTE | 2018-05-19 15:04 | History & Physical ---
ADMIT DATE: 05/15/2018 HISTORY OF PRESENT ILLNESS: This patient initially came from [place], was admitted to the medical floor. Apparently, the patient was not eating and drinking, and patient was also having low-grade fever and also the patient has underlying psychosis as the patient being very aggressive. They wanted the patient's medication to be adjusted in Geropsych Unit. Apparently because of his infection, initially he was admitted to the medical floor where he was treated with IV antibiotics and later on he has been ordered p.o. antibiotic and then transferred to Geropsych Unit on 05/15/2018, and Dr. Delarosa, the psychiatrist is following the patient. PHYSICAL EXAMINATION: GENERAL: Alert, oriented, elderly male. The patient seems to be disheveled and very confused. HEAD: Normal. ENT: Normal. NECK: Supple, nontender. LUNGS: Bilaterally decreased. CARDIOVASCULAR SYSTEM: S1, S2 heard. ABDOMEN: Soft. Bowel sounds were heard. DIAGNOSES: Acute psychosis, UTI, being treated. PLAN: We will follow along with Dr. Delarosa. JOB# [id number]
--- NOTE | 2018-05-19 18:58 | Discharge Summary ---
DATE OF DISCHARGE: 05/18/2018 PATIENT'S AGE: 68-year-old. SEX: Male. PHYSICIAN: Rj Delarosa MD, MPH FINAL DIAGNOSES: PRIMARY DIAGNOSIS: Unspecified psychosis. SECONDARY DIAGNOSIS: Dementia with psychotic features. REASON FOR HOSPITALIZATION: The patient was admitted to the hospital from Med-Surg unit because of irritability and increased anger and increased agitation and confusion. HOSPITAL COURSE: The patient continued to be extremely angry and agitated. The patient also continued to be confused and irritable. The patient was started on Seroquel in a dose of 12.5 mg twice a day and continued to take Depakote 500 mg twice a day. The patient was still agitated and in irritable mood and confused. The patient's came to the hospital and asked her to be discharged back to the halfway and insisted to do that. I spoke with her and she insists that she wants the patient to return to [facility]. Finally, she agreed to send the patient to Med/Surg unit and the patient was discharged there. Physical exam of the patient was done by Dr. Larson and he will monitor his medications and condition closely. LABORATORY AND DIAGNOSTIC DATA: Labs also was monitored closely by Dr. Larson. AFTER DISCHARGE PLANS: The patient discharged from the hospital and went to Med/Surg unit with plans for followup there. EXPECTED OUTCOME AFTER DISCHARGE: Depends on hospital course in [facility]. JOB# [id number]
== END 2018-05-18 19:00 | disposition short-term general hospital (02) | DRG 885 ==
LOC: GERO 17:32
PROVIDERS: ADMIT Psychiatry & Neurology Psychiatry; ATTEND Psychiatry & Neurology Psychiatry
DX: F23 Brief psychotic disorder (principal); E51.2 Wernicke's encephalopathy; N39.0 Urinary tract infection, site not specified; F03.91 Unspecified dementia, unspecified severity, with behavioral disturbance; M10.9 Gout, unspecified; N40.0 Benign prostatic hyperplasia without lower urinary tract symptoms; F32.9 Major depressive disorder, single episode, unspecified; K21.9 Gastro-esophageal reflux disease without esophagitis; E78.5 Hyperlipidemia, unspecified; K72.90 Hepatic failure, unspecified without coma; D50.0 Iron deficiency anemia secondary to blood loss (chronic); F41.9 Anxiety disorder, unspecified; R00.1 Bradycardia, unspecified
CPT/HCPCS: J1200; J1630; Z7610

== ENCOUNTER 2018-05-18 19:04 | Inpatient (IN) | payer MEDICARE, BC ==
[2018-05-18] MEDS ORDERED: cefTRIAXone 1 GM in Sodium Chloride 0.9% 50 ML IV SCH (21:00)
[2018-05-18 21:05] VITALS: BP 118/55
[2018-05-18] MEDS: Levofloxacin 500mg/100mL 500 MG/100 ML BAG IV SCH (22:05)
[2018-05-18] MEDS ORDERED: Magnesium Hydroxide (MOM) 30 mL UDC PO PRN (22:25)
[2018-05-18] MEDS ORDERED: Maalox 30 mL Cup PO PRN (22:25)
[2018-05-19 06:36] LABS: % BASOPHILS 0.6 % (0.0-2.0); % EOSINOPHILS 0.9 % (0.0-5.0); % LYMPHOCYTES 24.3 % (20.0-50.0); % MONOCYTES 8.7 % (2.0-10.0); % NEUTROPHILS 65.5 % (40.0-80.0); HEMATOCRIT 35.8 % (41.0-60); HEMOGLOBIN 12.4 gm/dL (12-16); LYMPHOCYTE ABSOLUTE 1.2 Th/cmm (1.5-3.0); MEAN CELL VOLUME 84.7 fl (80-99); MEAN CORPUSCULAR HEMOGLOBIN 29.4 pg (27.0-31.0); MEAN CORPUSCULAR HGB CONC 34.7 pg (28.0-36.0); MEAN PLATELET VOLUME 7.2 fl; MONOCYTE ABSOLUTE 0.4 Th/cmm (0.3-1.0); NEUTROPHILE ABSOLUTE 3.5 Th/cmm (1.8-8.0); PLATELET COUNT 219 Th/cmm (150-400); RED BLOOD COUNT 4.22 Mil/cmm (3.80-5.80); RED CELL DISTRIBUTION WIDTH 13.5 % (11.5-20.0); WHITE BLOOD COUNT 5.1 Th/cmm (4.8-10.8)
[2018-05-19 06:49] LABS: ALB/GLOB RATIO 1.7 (1.0-1.8); ALBUMIN 3.5 gm/dL (4.2-5.5); ALKALINE PHOSPHATASE 53 U/L (34-104); ANION GAP 9.1 (7.0-16.0); BILIRUBIN,TOTAL 0.6 mg/dL (0.3-1.0); BUN - UREA NITROGEN 12 mg/dL (7-25); CALCIUM SERUM 9.1 mg/dL (8.6-10.3); CARBON DIOXIDE 28.4 mEq/L (21.0-31.0); CHLORIDE 106 mEq/L (98-107); CREATININE - SERUM 0.9 mg/dL (0.7-1.3); GFR AFRICAN-AMERICAN > 60.0 ml/min (>90); GFR NON AFRICAN-AMERICAN > 60.0 ml/min; GLUCOSE 95 mg/dL (70-105); POTASSIUM SERUM 3.5 mEq/L (3.5-5.1); SGOT 22 U/L (13-39); SGPT/ALT 18 U/L (7-52); SODIUM SERUM 140 mEq/L (136-145); TOTAL PROTEIN,SERUM 5.6 gm/dL (6.0-8.3)
[2018-05-19] MEDS: Ferrous Sulfate 325 MG TAB PO SCH (11:00)
[2018-05-19] MEDS: Lactobacillus Rhamnosus GG 15 Billion CFU CAP.SPRINK PO SCH (11:00)
[2018-05-19] MEDS: Multivitamin Tab PO SCH (11:01)
[2018-05-19] MEDS: POLYETHYLENE GLYCOL 3350 17 GM PACK PO SCH (11:01)
[2018-05-19] MEDS: Lactulose 10 Gm/15 mL 30mL UDC PO SCH ×3 (11:01→21:36)
--- NOTE | 2018-05-19 12:18 | Consultation ---
DATE OF CONSULTATION: 05/18/2018 INFECTIOUS DISEASE CONSULTATION REFERRING PHYSICIAN: Dr. Larson. REASON FOR CONSULTATION: UTI. HISTORY OF PRESENT ILLNESS: The patient is a 68-year-old male with a past medical history of dementia, Wernicke's encephalopathy, alcohol abuse in the past, history of previous brain tumor, left frontal meningioma, is status post surgery; psychosis, brought into nursing facility on 05/07/2018 for increasing confusion. During the admission, the patient was found to have bacteria and UTI. The patient was started on antibiotic and transferred to the Geropsych Unit for further care. However, the patient's denied the transfer and the patient was brought to the Med/Surg Unit again. ID consult was called for the UTI. PAST MEDICAL HISTORY: Includes as mentioned above, dementia, Wernicke's encephalopathy, alcohol abuse, history of cerebral tumor, status post resection. ALLERGIES: PENICILLIN. MEDICATIONS: See medication reconciliation sheet. Antibiotic-arroyo, the patient is on Levaquin. FAMILY HISTORY: Unknown. SOCIAL HISTORY: The patient has history of alcohol use in the past. Otherwise, no smoking, alcohol or drug use recently. Lives at nursing facility. REVIEW OF SYSTEMS: Not reliable; however, CONSTITUTIONAL: No fever, no chills. HEENT: No diplopia, no photophobia, no sore throat. RESPIRATORY: No cough, no shortness of breath. CARDIOVASCULAR: No chest pain, no palpitation. GASTROINTESTINAL: No nausea, no vomiting, no diarrhea or constipation. GENITOURINARY: No dysuria. NEUROLOGIC: No headache, no dizziness, no focal weakness. PHYSICAL EXAMINATION: VITAL SIGNS: Current vital signs show temperature is 97.5, pulse rate 54, respiration is 20, blood pressure 118/55, oxygen saturation 98%. GENERAL: The patient is comfortable, lying in the bed. HEENT: Head is normocephalic, atraumatic. Oral cavity is moist, pink tongue. NECK: Supple, no JVD, no carotid bruit. Trachea midline. CHEST: Bilateral breath sounds. No crackles or wheezing. HEART: S1, S2 within normal limits. Regular rhythm. No murmur, no gallop. ABDOMEN: Soft, nontender, nondistended. Bowel sounds present. EXTREMITIES: No cyanosis, no clubbing, no edema. NEUROLOGIC: Alert and awake. Speech is clear. LABORATORY DATA: Current lab shows WBC count is 4200, hemoglobin 13.8, hematocrit 41.1, platelets are 215,000, neutrophil is 62%. Sodium 143, potassium 3.8, chloride 107, bicarbonate is 20, BUN is 9, creatinine is 0.7, glucose is 117. Urinalysis on 05/11/2018 showed positive nitrite, small leukoesterase, wbc's 0-2, and moderate bacteria. Although, urine culture grew Klebsiella pneumoniae on 05/11/2018. IMPRESSION: Urinary tract infection. Urine culture grew Klebsiella pneumoniae. RECOMMENDATION: We will continue same treatment at this time and repeat UA and urine culture. We will continue Levaquin at this time. Adjust based on the blood culture. Thank you Dr. Larson for allowing me in taking care of this patient. JOB# [id number]
[2018-05-19] MEDS ORDERED: Haloperidol Lactate 5 mg/mL 1mL Vial IM ONE (19:48)
[2018-05-19] MEDS: Levofloxacin 500mg/100mL 500 MG/100 ML BAG IV SCH (23:00)
--- NOTE | 2018-05-19 23:14 | Infectious Disease Prog Note ---
Infectious Disease Subjective - Review of Systems Service Date: 05/19/18 Subjective: No new change, no fever. Infectious Disease Objective - Results Result Diagrams: 05/19/18 06:08 05/19/18 06:08 Recent Labs: Laboratory Last Values WBC 5.1 Th/cmm (4.8-10.8) 05/19/18 06:08 RBC 4.22 Mil/cmm (3.80-5.80) 05/19/18 06:08 Hgb 12.4 gm/dL (12-16) 05/19/18 06:08 Hct 35.8 % (41.0-60) L 05/19/18 06:08 MCV 84.7 fl (80-99) 05/19/18 06:08 MCH 29.4 pg (27.0-31.0) 05/19/18 06:08 MCHC Differential 34.7 pg (28.0-36.0) 05/19/18 06:08 RDW 13.5 % (11.5-20.0) 05/19/18 06:08 Plt Count 219 Th/cmm (150-400) 05/19/18 06:08 MPV 7.2 fl 05/19/18 06:08 Neutrophils % 65.5 % (40.0-80.0) 05/19/18 06:08 Lymphocytes % 24.3 % (20.0-50.0) 05/19/18 06:08 Monocytes % 8.7 % (2.0-10.0) 05/19/18 06:08 Eosinophils % 0.9 % (0.0-5.0) 05/19/18 06:08 Basophils % 0.6 % (0.0-2.0) 05/19/18 06:08 Sodium 140 mEq/L (136-145) 05/19/18 06:08 Potassium 3.5 mEq/L (3.5-5.1) 05/19/18 06:08 Chloride 106 mEq/L (98-107) 05/19/18 06:08 Carbon Dioxide 28.4 mEq/L (21.0-31.0) 05/19/18 06:08 Anion Gap 9.1 (7.0-16.0) 05/19/18 06:08 BUN 12 mg/dL (7-25) 05/19/18 06:08 Creatinine 0.9 mg/dL (0.7-1.3) 05/19/18 06:08 Est GFR ( Amer) > 60.0 ml/min (>90) 05/19/18 06:08 Est GFR (Non-Af Amer) > 60.0 ml/min 05/19/18 06:08 BUN/Creatinine Ratio 13.3 05/19/18 06:08 Glucose 95 mg/dL (70-105) 05/19/18 06:08 Calcium 9.1 mg/dL (8.6-10.3) 05/19/18 06:08 Total Bilirubin 0.6 mg/dL (0.3-1.0) 05/19/18 06:08 AST 22 U/L (13-39) 05/19/18 06:08 ALT 18 U/L (7-52) 05/19/18 06:08 Alkaline Phosphatase 53 U/L (34-104) 05/19/18 06:08 Total Protein 5.6 gm/dL (6.0-8.3) L 05/19/18 06:08 Albumin 3.5 gm/dL (4.2-5.5) L 05/19/18 06:08 Globulin 2.1 gm/dL 05/19/18 06:08 Albumin/Globulin Ratio 1.7 (1.0-1.8) 05/19/18 06:08 - Physical Exam Vitals and I&O: Vital Signs Temp 97.6 F 05/19/18 20:00 Pulse 63 05/19/18 20:00 Resp 19 05/19/18 20:00 BP 113/72 05/19/18 16:00 Pulse Ox 97 05/19/18 20:00 Intake & Output 05/19/18 05/19/18 05/20/18 06:59 18:59 06:59 Intake Total 100 900 Balance 100 900 Weight (lbs) 78.925 kg Intake: Intake, IV Amount 100 Levofloxacin 500mg/100mL 100 500 mg In 100 ml @ 100 mls/hr IV Q24HR@2100 [facility] Rx#:[id number] Oral 900 Other: # Voids 3 # Bowel Movements 1 Weight Source Bedscale Bedscale Active Medications: Current Medications Acetaminophen (Tylenol) 650 mg PO Q4HR PRN PRN Reason: Mild Pain / Temp above 100 Stop: 07/17/18 22:24 Al Hydrox/Mg Hydrox/Simethicone (Maalox) 30 ml PO Q4HR PRN PRN Reason: GI DISTRESS Stop: 07/17/18 22:24 Allopurinol (Zyloprim) 100 mg PO DAILY [facility] Stop: 07/18/18 08:59 Last Admin: 05/19/18 11:00 Dose: Not Given Ascorbic Acid (Vitamin C) 500 mg PO DAILY [facility] Stop: 07/18/18 08:59 Last Admin: 05/19/18 11:00 Dose: Not Given Ferrous Sulfate (Iron) 325 mg PO DAILY [facility] Stop: 07/18/18 08:59 Last Admin: 05/19/18 11:00 Dose: Not Given Finasteride (Proscar) 5 mg PO DAILY [facility]; Protocol Stop: 07/18/18 08:59 Last Admin: 05/19/18 11:00 Dose: Not Given Folic Acid (Folate) 1 mg PO DAILY [facility] Stop: 07/18/18 08:59 Last Admin: 05/19/18 11:00 Dose: Not Given Levofloxacin (Levaquin Pb) 500 mg in 100 mls @ 100 mls/hr IV Q24HR@2100 [facility] Stop: 07/17/18 21:59 Last Infusion: 05/18/18 23:05 Dose: Infused Lactobacillus Rhamnosus (Culturelle 15b) 1 each PO DAILY [facility] Stop: 07/18/18 08:59 Last Admin: 05/19/18 11:00 Dose: Not Given Lactulose (Cephulac) 20 gm PO TID [facility] Stop: 07/18/18 08:59 Last Admin: 05/19/18 21:36 Dose: Not Given Lorazepam (Ativan) 0.5 mg PO Q4H PRN; Protocol PRN Reason: Agitation Stop: 07/17/18 21:05 Last Admin: 05/19/18 18:08 Dose: 0.5 mg Magnesium Hydroxide (Milk Of Magnesia) 30 ml PO HS PRN PRN Reason: Constipation Stop: 07/17/18 22:24 Multivitamins/Vitamin C (Theragran) 1 tab PO DAILY [facility] Stop: 07/18/18 08:59 Last Admin: 05/19/18 11:01 Dose: Not Given Polyethylene Glycol (Miralax) 17 gm PO DAILY [facility] Stop: 07/18/18 08:59 Last Admin: 05/19/18 11:01 Dose: Not Given Quetiapine Fumarate (Seroquel) 12.5 mg PO BID [facility]; Protocol Stop: 07/17/18 21:59 Last Admin: 05/19/18 17:21 Dose: 12.5 mg Simvastatin (Zocor) 20 mg PO HS [facility]; Protocol Stop: 07/18/18 20:59 Last Admin: 05/19/18 21:36 Dose: Not Given Tamsulosin HCl (Flomax) 0.4 mg PO DAILY [facility] Stop: 07/18/18 08:59 Last Admin: 05/19/18 11:01 Dose: Not Given Thiamine HCl (Vitamin B1) 200 mg PO DAILY [facility] Stop: 07/18/18 08:59 Last Admin: 05/19/18 11:01 Dose: Not Given Valproate Sodium (Depakene) 250 mg PO BID [facility]; Protocol Stop: 07/18/18 08:59 Last Admin: 05/19/18 17:22 Dose: 250 mg Zinc Sulfate (Zinc Sulfate) 220 mg PO DAILY [facility] Stop: 07/18/18 08:59 Last Admin: 05/19/18 11:01 Dose: Not Given Zolpidem Tartrate (Ambien) 5 mg PO HS PRN PRN Reason: Insomnia Stop: 07/17/18 22:24 Last Admin: 05/19/18 01:26 Dose: 5 mg General: no acute distress, well developed, well nourished HEENT: atraumatic, normocephalic, PERRLA, EOMI Neck: supple, no thyromegaly Cardiovascular: S1S2, regular Lungs: clear to auscultation bilaterally, clear to percussion Abdomen: soft, no tender Extremities: no cyanosis, no clubbing, no edema Neurological: awake, alert, oriented Skin: intact Infectious Disease Assmt/Plan - Assessment Assessment: Urinary tract infection. Urine culture grew Klebsiella pneumoniae. - Plan Plan: CPM.
--- NOTE | 2018-05-20 02:42 | History & Physical ---
ADMIT DATE: 05/18/2018 HISTORY OF PRESENT ILLNESS: The patient was admitted for increasing UTI and the Wernicke's encephalopathy, dementia, alcohol abuse. The patient is known to have ____ meningioma, status post surgery. The patient also has psychosis and the patient was brought in for increasing bacteremia and UTI for IV antibiotic therapy and the patient has past history of dementia, Wernicke's encephalopathy, alcohol abuse, history of cerebral tumor, status post resection. MEDICATIONS: See the reconciliation sheet. REVIEW OF SYSTEMS: Difficult to obtain. PHYSICAL EXAMINATION: HEAD: Normal, status post surgery. ENT: Otherwise normal. NECK: Supple, nontender. LUNGS: Clear. CARDIOVASCULAR SYSTEM: S1, S2 heard. ABDOMEN: Soft. Bowel sounds are heard. LABORATORY DATA: Platelet was 4200, hemoglobin 13 and urinalysis showed positive for nitrite and leukocyte esterase. DIAGNOSIS: 1. Urinary tract infection, possible Klebsiella pneumoniae infection. 2. Sepsis. 3. History of Wernicke's encephalopathy. 4. History of dementia. 5. History of alcohol abuse. 6. History of cerebral tumor, status post resection. PLAN: Continue IV antibiotic therapy and I will follow the patient and also ID doctor see the patient. JOB# [id number]
--- NOTE | 2018-05-20 08:37 | Progress Notes ---
DATE: SUBJECTIVE: Chart reviewed and the patient interviewed. Also discussed the patient's condition with the staff and reviewed records and labs. The patient was under my care in Geropsych Unit. The patient was transferred to [facility] unit because of unsteady gait and needed more workup. The patient was extremely agitated last night and staff called me and we ordered for the patient to take Ativan, Benadryl, and Haldol to calm him down. The patient currently seems to be sedated. The patient was taking Seroquel and Depakote while in the unit. Currently, the patient is not taking any medications at the same time and required emergency medications last night. ASSESSMENT: The patient currently is sedated, but he can be agitated at times. TREATMENT PLAN: We will discontinue Depakote. We will give Seroquel 12.5 mg twice a day. Also, we will give Ativan on a p.r.n. basis for agitation, but we will increase the dose to 1 mg every day. We will continue to monitor behavior and followup. JOB# [id number]
[2018-05-20] MEDS: Ferrous Sulfate 325 MG TAB PO SCH (09:12)
[2018-05-20] MEDS: Lactobacillus Rhamnosus GG 15 Billion CFU CAP.SPRINK PO SCH (09:12)
[2018-05-20] MEDS: Multivitamin Tab PO SCH (09:13)
[2018-05-20] MEDS: Lactulose 10 Gm/15 mL 30mL UDC PO SCH ×3 (09:13→20:30)
[2018-05-20] MEDS: POLYETHYLENE GLYCOL 3350 17 GM PACK PO SCH (09:13)
--- NOTE | 2018-05-20 16:14 | General Progress Note ---
Subjective - Review of Systems Events since last encounter: patient is comfortable Objective - Results Result Diagrams: 05/19/18 06:08 05/19/18 06:08 Recent Labs: Laboratory Last Values WBC 5.1 Th/cmm (4.8-10.8) 05/19/18 06:08 RBC 4.22 Mil/cmm (3.80-5.80) 05/19/18 06:08 Hgb 12.4 gm/dL (12-16) 05/19/18 06:08 Hct 35.8 % (41.0-60) L 05/19/18 06:08 MCV 84.7 fl (80-99) 05/19/18 06:08 MCH 29.4 pg (27.0-31.0) 05/19/18 06:08 MCHC Differential 34.7 pg (28.0-36.0) 05/19/18 06:08 RDW 13.5 % (11.5-20.0) 05/19/18 06:08 Plt Count 219 Th/cmm (150-400) 05/19/18 06:08 MPV 7.2 fl 05/19/18 06:08 Neutrophils % 65.5 % (40.0-80.0) 05/19/18 06:08 Lymphocytes % 24.3 % (20.0-50.0) 05/19/18 06:08 Monocytes % 8.7 % (2.0-10.0) 05/19/18 06:08 Eosinophils % 0.9 % (0.0-5.0) 05/19/18 06:08 Basophils % 0.6 % (0.0-2.0) 05/19/18 06:08 Sodium 140 mEq/L (136-145) 05/19/18 06:08 Potassium 3.5 mEq/L (3.5-5.1) 05/19/18 06:08 Chloride 106 mEq/L (98-107) 05/19/18 06:08 Carbon Dioxide 28.4 mEq/L (21.0-31.0) 05/19/18 06:08 Anion Gap 9.1 (7.0-16.0) 05/19/18 06:08 BUN 12 mg/dL (7-25) 05/19/18 06:08 Creatinine 0.9 mg/dL (0.7-1.3) 05/19/18 06:08 Est GFR ( Amer) > 60.0 ml/min (>90) 05/19/18 06:08 Est GFR (Non-Af Amer) > 60.0 ml/min 05/19/18 06:08 BUN/Creatinine Ratio 13.3 05/19/18 06:08 Glucose 95 mg/dL (70-105) 05/19/18 06:08 POC Glucose 92 MG/DL (70-105) 05/18/18 23:58 Calcium 9.1 mg/dL (8.6-10.3) 05/19/18 06:08 Total Bilirubin 0.6 mg/dL (0.3-1.0) 05/19/18 06:08 AST 22 U/L (13-39) 05/19/18 06:08 ALT 18 U/L (7-52) 05/19/18 06:08 Alkaline Phosphatase 53 U/L (34-104) 05/19/18 06:08 Total Protein 5.6 gm/dL (6.0-8.3) L 05/19/18 06:08 Albumin 3.5 gm/dL (4.2-5.5) L 05/19/18 06:08 Globulin 2.1 gm/dL 05/19/18 06:08 Albumin/Globulin Ratio 1.7 (1.0-1.8) 05/19/18 06:08 - Physical Exam Vitals and I&O: Vital Signs Temp 97.2 F 05/20/18 15:18 Pulse 58 05/20/18 15:18 Resp 18 05/20/18 15:18 BP 127/63 05/20/18 15:18 Pulse Ox 96 05/20/18 15:18 Intake & Output 05/19/18 05/20/18 05/20/18 18:59 06:59 18:59 Intake Total 900 120 Balance 900 120 Weight (lbs) 78.925 kg 78.925 kg Intake: Oral 900 120 Other: # Voids 3 3 # Bowel Movements 1 Weight Source Bedscale Estimated Active Medications: Current Medications Acetaminophen (Tylenol) 650 mg PO Q4HR PRN PRN Reason: Mild Pain / Temp above 100 Stop: 07/17/18 22:24 Al Hydrox/Mg Hydrox/Simethicone (Maalox) 30 ml PO Q4HR PRN PRN Reason: GI DISTRESS Stop: 07/17/18 22:24 Allopurinol (Zyloprim) 100 mg PO DAILY [facility] Stop: 07/18/18 08:59 Last Admin: 05/20/18 09:12 Dose: 100 mg Ascorbic Acid (Vitamin C) 500 mg PO DAILY [facility] Stop: 07/18/18 08:59 Last Admin: 05/20/18 09:13 Dose: 500 mg Ferrous Sulfate (Iron) 325 mg PO DAILY [facility] Stop: 07/18/18 08:59 Last Admin: 05/20/18 09:12 Dose: 325 mg Finasteride (Proscar) 5 mg PO DAILY [facility]; Protocol Stop: 07/18/18 08:59 Last Admin: 05/20/18 09:12 Dose: 5 mg Folic Acid (Folate) 1 mg PO DAILY [facility] Stop: 07/18/18 08:59 Last Admin: 05/20/18 09:12 Dose: 1 mg Levofloxacin (Levaquin Pb) 500 mg in 100 mls @ 100 mls/hr IV Q24HR@2100 [facility] Stop: 07/17/18 21:59 Last Admin: 05/19/18 23:00 Dose: 100 mls/hr Lactobacillus Rhamnosus (Culturelle 15b) 1 each PO DAILY [facility] Stop: 07/18/18 08:59 Last Admin: 05/20/18 09:12 Dose: 1 each Lactulose (Cephulac) 20 gm PO TID [facility] Stop: 07/18/18 08:59 Last Admin: 05/20/18 13:46 Dose: 20 gm Lorazepam (Ativan) 1 mg PO Q4H PRN; Protocol PRN Reason: Agitation Stop: 07/17/18 21:05 Magnesium Hydroxide (Milk Of Magnesia) 30 ml PO HS PRN PRN Reason: Constipation Stop: 07/17/18 22:24 Multivitamins/Vitamin C (Theragran) 1 tab PO DAILY [facility] Stop: 07/18/18 08:59 Last Admin: 05/20/18 09:13 Dose: 1 tab Polyethylene Glycol (Miralax) 17 gm PO DAILY [facility] Stop: 07/18/18 08:59 Last Admin: 05/20/18 09:13 Dose: 17 gm Quetiapine Fumarate (Seroquel) 12.5 mg PO BID [facility]; Protocol Stop: 07/17/18 21:59 Last Admin: 05/20/18 09:13 Dose: 12.5 mg Simvastatin (Zocor) 20 mg PO HS [facility]; Protocol Stop: 07/18/18 20:59 Last Admin: 05/19/18 21:36 Dose: Not Given Tamsulosin HCl (Flomax) 0.4 mg PO DAILY [facility] Stop: 07/18/18 08:59 Last Admin: 05/20/18 09:12 Dose: 0.4 mg Thiamine HCl (Vitamin B1) 200 mg PO DAILY [facility] Stop: 07/18/18 08:59 Last Admin: 05/20/18 09:12 Dose: 200 mg Zinc Sulfate (Zinc Sulfate) 220 mg PO DAILY [facility] Stop: 07/18/18 08:59 Last Admin: 05/20/18 09:13 Dose: 220 mg Zolpidem Tartrate (Ambien) 5 mg PO HS PRN PRN Reason: Insomnia Stop: 07/17/18 22:24 Last Admin: 05/19/18 01:26 Dose: 5 mg
[2018-05-20] MEDS: Levofloxacin 500mg/100mL 500 MG/100 ML BAG IV SCH (20:30)
[2018-05-21 05:26] LABS: % BASOPHILS 0.7 % (0.0-2.0); % EOSINOPHILS 0.9 % (0.0-5.0); % LYMPHOCYTES 17.9 % (20.0-50.0); % NEUTROPHILS 73.5 % (40.0-80.0); HEMATOCRIT 40.5 % (41.0-60); LYMPHOCYTE ABSOLUTE 0.9 Th/cmm (1.5-3.0); MEAN CELL VOLUME 85.1 fl (80-99); MEAN CORPUSCULAR HEMOGLOBIN 29.3 pg (27.0-31.0); MEAN CORPUSCULAR HGB CONC 34.4 pg (28.0-36.0); MEAN PLATELET VOLUME 7.1 fl; MONOCYTE ABSOLUTE 0.4 Th/cmm (0.3-1.0); NEUTROPHILE ABSOLUTE 3.8 Th/cmm (1.8-8.0); PLATELET COUNT 224 Th/cmm (150-400); RED BLOOD COUNT 4.77 Mil/cmm (3.80-5.80); RED CELL DISTRIBUTION WIDTH 13.3 % (11.5-20.0); WHITE BLOOD COUNT 5.1 Th/cmm (4.8-10.8)
[2018-05-21 05:43] LABS: ALB/GLOB RATIO 1.6 (1.0-1.8); ALBUMIN 3.9 gm/dL (4.2-5.5); ALKALINE PHOSPHATASE 55 U/L (34-104); ANION GAP 10.2 (7.0-16.0); BILIRUBIN,TOTAL 0.7 mg/dL (0.3-1.0); BUN - UREA NITROGEN 9 mg/dL (7-25); CALCIUM SERUM 9.3 mg/dL (8.6-10.3); CARBON DIOXIDE 28.6 mEq/L (21.0-31.0); CHLORIDE 105 mEq/L (98-107); CREATININE - SERUM 0.9 mg/dL (0.7-1.3); GFR AFRICAN-AMERICAN > 60.0 ml/min (>90); GFR NON AFRICAN-AMERICAN > 60.0 ml/min; GLUCOSE 107 mg/dL (70-105); POTASSIUM SERUM 3.8 mEq/L (3.5-5.1); SGOT 23 U/L (13-39); SGPT/ALT 20 U/L (7-52); SODIUM SERUM 140 mEq/L (136-145); TOTAL PROTEIN,SERUM 6.3 gm/dL (6.0-8.3)
[2018-05-21] MEDS: Multivitamin Tab PO SCH (08:22)
[2018-05-21] MEDS: Lactulose 10 Gm/15 mL 30mL UDC PO SCH ×2 (08:23→14:08)
[2018-05-21] MEDS: Lactobacillus Rhamnosus GG 15 Billion CFU CAP.SPRINK PO SCH (08:23)
[2018-05-21] MEDS: POLYETHYLENE GLYCOL 3350 17 GM PACK PO SCH (08:23)
[2018-05-21] MEDS: Ferrous Sulfate 325 MG TAB PO SCH (08:23)
--- NOTE | 2018-05-21 08:58 | Infectious Disease Prog Note ---
Infectious Disease Subjective - Review of Systems Service Date: 05/21/18 Subjective: No new change, no fever. Infectious Disease Objective - Results Result Diagrams: 05/21/18 04:53 05/21/18 04:53 Recent Labs: Laboratory Last Values WBC 5.1 Th/cmm (4.8-10.8) 05/21/18 04:53 RBC 4.77 Mil/cmm (3.80-5.80) 05/21/18 04:53 Hgb 14.0 gm/dL (12-16) 05/21/18 04:53 Hct 40.5 % (41.0-60) L 05/21/18 04:53 MCV 85.1 fl (80-99) 05/21/18 04:53 MCH 29.3 pg (27.0-31.0) 05/21/18 04:53 MCHC Differential 34.4 pg (28.0-36.0) 05/21/18 04:53 RDW 13.3 % (11.5-20.0) 05/21/18 04:53 Plt Count 224 Th/cmm (150-400) 05/21/18 04:53 MPV 7.1 fl 05/21/18 04:53 Neutrophils % 73.5 % (40.0-80.0) 05/21/18 04:53 Lymphocytes % 17.9 % (20.0-50.0) L 05/21/18 04:53 Monocytes % 7.0 % (2.0-10.0) 05/21/18 04:53 Eosinophils % 0.9 % (0.0-5.0) 05/21/18 04:53 Basophils % 0.7 % (0.0-2.0) 05/21/18 04:53 Sodium 140 mEq/L (136-145) 05/21/18 04:53 Potassium 3.8 mEq/L (3.5-5.1) 05/21/18 04:53 Chloride 105 mEq/L (98-107) 05/21/18 04:53 Carbon Dioxide 28.6 mEq/L (21.0-31.0) 05/21/18 04:53 Anion Gap 10.2 (7.0-16.0) 05/21/18 04:53 BUN 9 mg/dL (7-25) 05/21/18 04:53 Creatinine 0.9 mg/dL (0.7-1.3) 05/21/18 04:53 Est GFR ( Amer) > 60.0 ml/min (>90) 05/21/18 04:53 Est GFR (Non-Af Amer) > 60.0 ml/min 05/21/18 04:53 BUN/Creatinine Ratio 10.0 05/21/18 04:53 Glucose 107 mg/dL (70-105) H 05/21/18 04:53 POC Glucose 92 MG/DL (70-105) 05/18/18 23:58 Calcium 9.3 mg/dL (8.6-10.3) 05/21/18 04:53 Total Bilirubin 0.7 mg/dL (0.3-1.0) 05/21/18 04:53 AST 23 U/L (13-39) 05/21/18 04:53 ALT 20 U/L (7-52) 05/21/18 04:53 Alkaline Phosphatase 55 U/L (34-104) 05/21/18 04:53 Ammonia 40 umol/L (16-53) 05/21/18 04:53 Total Protein 6.3 gm/dL (6.0-8.3) 05/21/18 04:53 Albumin 3.9 gm/dL (4.2-5.5) L 05/21/18 04:53 Globulin 2.4 gm/dL 05/21/18 04:53 Albumin/Globulin Ratio 1.6 (1.0-1.8) 05/21/18 04:53 - Physical Exam Vitals and I&O: Vital Signs Temp 96.8 F 05/21/18 08:00 Pulse 44 05/21/18 08:00 Resp 20 05/21/18 08:00 BP 115/56 05/21/18 08:00 Pulse Ox 97 05/21/18 08:00 Intake & Output 05/20/18 05/21/18 05/21/18 18:59 06:59 18:59 Intake Total 650 280 Balance 650 280 Weight (lbs) 78.925 kg 78.925 kg Intake: Intake, IV Amount 100 Levofloxacin 500mg/100mL 100 500 mg In 100 ml @ 100 mls/hr IV Q24HR@2100 [facility] Rx#:[id number] Oral 650 180 Other: # Voids 3 1 # Bowel Movements 1 1 Weight Source Bedscale Bedscale Active Medications: Current Medications Acetaminophen (Tylenol) 650 mg PO Q4HR PRN PRN Reason: Mild Pain / Temp above 100 Stop: 07/17/18 22:24 Last Admin: 05/20/18 23:15 Dose: 650 mg Al Hydrox/Mg Hydrox/Simethicone (Maalox) 30 ml PO Q4HR PRN PRN Reason: GI DISTRESS Stop: 07/17/18 22:24 Allopurinol (Zyloprim) 100 mg PO DAILY [facility] Stop: 07/18/18 08:59 Last Admin: 05/21/18 08:22 Dose: 100 mg Ascorbic Acid (Vitamin C) 500 mg PO DAILY [facility] Stop: 07/18/18 08:59 Last Admin: 05/21/18 08:23 Dose: 500 mg Ferrous Sulfate (Iron) 325 mg PO DAILY [facility] Stop: 07/18/18 08:59 Last Admin: 05/21/18 08:23 Dose: 325 mg Finasteride (Proscar) 5 mg PO DAILY [facility]; Protocol Stop: 07/18/18 08:59 Last Admin: 05/21/18 08:23 Dose: 5 mg Folic Acid (Folate) 1 mg PO DAILY [facility] Stop: 07/18/18 08:59 Last Admin: 05/21/18 08:23 Dose: 1 mg Levofloxacin (Levaquin Pb) 500 mg in 100 mls @ 100 mls/hr IV Q24HR@2100 [facility] Stop: 07/17/18 21:59 Last Infusion: 05/20/18 21:30 Dose: Infused Lactobacillus Rhamnosus (Culturelle 15b) 1 each PO DAILY [facility] Stop: 07/18/18 08:59 Last Admin: 05/21/18 08:23 Dose: 1 each Lactulose (Cephulac) 20 gm PO TID [facility] Stop: 07/18/18 08:59 Last Admin: 05/21/18 08:23 Dose: 20 gm Lorazepam (Ativan) 1 mg PO Q4H PRN; Protocol PRN Reason: Agitation Stop: 07/17/18 21:05 Last Admin: 05/20/18 23:15 Dose: 1 mg Magnesium Hydroxide (Milk Of Magnesia) 30 ml PO HS PRN PRN Reason: Constipation Stop: 07/17/18 22:24 Multivitamins/Vitamin C (Theragran) 1 tab PO DAILY [facility] Stop: 07/18/18 08:59 Last Admin: 05/21/18 08:22 Dose: 1 tab Polyethylene Glycol (Miralax) 17 gm PO DAILY [facility] Stop: 07/18/18 08:59 Last Admin: 05/21/18 08:23 Dose: 17 gm Quetiapine Fumarate (Seroquel) 12.5 mg PO BID [facility]; Protocol Stop: 07/17/18 21:59 Last Admin: 05/21/18 08:22 Dose: 12.5 mg Simvastatin (Zocor) 20 mg PO HS [facility]; Protocol Stop: 07/18/18 20:59 Last Admin: 05/20/18 20:29 Dose: 20 mg Tamsulosin HCl (Flomax) 0.4 mg PO DAILY [facility] Stop: 07/18/18 08:59 Last Admin: 05/21/18 08:22 Dose: 0.4 mg Thiamine HCl (Vitamin B1) 200 mg PO DAILY [facility] Stop: 07/18/18 08:59 Last Admin: 05/21/18 08:23 Dose: 200 mg Zinc Sulfate (Zinc Sulfate) 220 mg PO DAILY [facility] Stop: 07/18/18 08:59 Last Admin: 05/21/18 08:23 Dose: 220 mg Zolpidem Tartrate (Ambien) 5 mg PO HS PRN PRN Reason: Insomnia Stop: 07/17/18 22:24 Last Admin: 05/20/18 20:30 Dose: 5 mg General: no acute distress, well developed, well nourished HEENT: atraumatic, normocephalic, PERRLA Neck: supple, no thyromegaly Cardiovascular: S1S2, regular Lungs: clear to auscultation bilaterally, clear to percussion Abdomen: soft, no tender, no distended Extremities: no cyanosis, no clubbing, no edema Neurological: awake, alert, oriented Skin: intact Infectious Disease Assmt/Plan - Assessment Assessment: Urinary tract infection. Urine culture grew Klebsiella pneumoniae. - Plan Plan: Continue levaquin.
== END 2018-05-21 15:11 | DRG 872 ==
LOC: MSI 19:04
PROVIDERS: ADMIT Internal Medicine; ATTEND Internal Medicine
DX: A41.9 Sepsis, unspecified organism (principal); E51.2 Wernicke's encephalopathy; N39.0 Urinary tract infection, site not specified; B96.1 Klebsiella pneumoniae [K. pneumoniae] as the cause of diseases classified elsewhere; F03.90 Unspecified dementia, unspecified severity, without behavioral disturbance, psychotic disturbance, mood disturbance, and anxiety
CPT/HCPCS: 36415-UA; 80053-TC; 82140-TC; 82948-90; 85025-TC; J1200; J1630; J1956; J2060; Z7610